=== PATIENT | female | born 1975 | race Caucasian/White ===

== ENCOUNTER 2016-09-06 18:09 | Emergency (ER) | payer SELFPAY ==
[2016-09-06 18:15] VITALS: BP 123/87; PULSE 133; RESP 20; TEMP 98.1; O2SAT 96
[2016-09-07] MEDS ORDERED: BACT800T5 PO (03:33)
[2016-09-07] MEDS ORDERED: ZOFR4TAB3 SL (03:33)
[2016-09-07] MEDS ORDERED: CHLO5CAP3 PO (03:38)
== END 2016-09-06 19:21 | disposition left against medical advice (07) ==
LOC: NED 19:15
DX: Z53.21 Procedure and treatment not carried out due to patient leaving prior to being seen by health care provider (principal)
CPT/HCPCS: 99281

== ENCOUNTER 2016-09-06 19:54 | Emergency (ER) | payer SELFPAY ==
[~2016-09-06] VITALS: Ht 175.3 cm; Wt 51.0 kg
[2016-09-06 20:38] VITALS: BP 121/89; PULSE 134; RESP 20; TEMP 98.8; O2SAT 97
[2016-09-06 21:07] VITALS: BP 135/90; PULSE 129; RESP 20; O2SAT 97
[2016-09-06] MEDS ORDERED: SODIUM CHLOR 0.9% 1000 ML INJ 1,000 ML IV ONE (21:16)
[2016-09-06] MEDS ORDERED: ONDANSETRON HCL 4 MG/2 ML VIAL IVP ONE (21:30)
[2016-09-06] MEDS ORDERED: SODIUM CHLORIDE 0.9% FLUSH 5 ML FLUSH IVF PRN (21:30)
[2016-09-06] MEDS ORDERED: LORazepam 2 MG/ML VIAL IV PUSH ONE (21:30)
--- NOTE | 2016-09-06 21:32 | PD ---
HPI Chief Complaint: Alcohol/Drug Intoxication Time Seen by Provider: 21:32 Travel History International Travel<30 days: No Contact w/Intl Traveler<30days: No Traveled to known affect area: No History of Present Illness HPI 41-year-old female presents to the emergency department by private transportation for complaint of alcohol withdrawal. Patient states she drinks a bottle to a bottle of half of whiskey every day. Patient last drank alcohol today at 2 PM. Patient states she also intermittently uses prescription medication that she gets from other people or substances. Patient states she took 50 mg of oxycodone yesterday. Patient also admits to smoking tobacco. Patient has history of hepatitis C. Patient has been seen numerous times in the emergency department for alcohol gastritis dehydration and alcohol withdrawal. Patient states that today she decided to attempt to pursue a detox program and went to [facility] and Tracey was told that the facility was fully could not take her as a patient. Patient states she subsequently went to a detox facility in [place] and the detox facility there said that she had to go the hospital so she went to Hospital reportedly in [place] and they reportedly told her that she could not be evaluated or treated there. Patient subsequently decided to come to the hospital here for evaluation. Patient complains of multiple episodes of vomiting and feeling dehydrated but denies hematemesis, coffee-ground emesis, or bilious emesis. Patient denies any abdominal pain. Patient's had numerous episodes of watery bloody stool reportedly. Patient denies any dietary indiscretion well water ingestion or foreign travel. Has not been on any antibiotics recently. Did not develop stool shortly after taking antibiotic for while on antibiotic. Does not had C. difficile diarrheal illness in the past. Has not been around or care for anyone with a C. difficile diarrheal illness. [facility] Past Medical History Narrative Medical Anxiety depression hepatitis C alcoholism polysubstance use and alcoholic gastritis pancreatitis; nursing notes reviewed Hx Anticoagulant Therapy: No Anxiety: Yes Depression: Yes Cancer: No Cardiovascular Problems: Yes (HEART MURMUR) Chemotherapy: No Cerebrovascular Accident: No Diabetes: No Diminished Hearing: No Endocrine: No Gastrointestinal Disorders: Yes ("my pancreas is fed up") GERD: Yes Genitourinary: No Headaches: Yes Hepatitis: Yes (HEP C) Immune Disorder: No Implanted Vascular Access Dvce: No Musculoskeletal: Yes Neurologic: Yes Psychiatric: Yes Reproductive: No Respiratory: No Immunizations Current: Yes Influenza Vaccination: No ?: Not LMP: 08/14/16 : 1 Miscarriage: 1 Dilation and Curettage (D&C): Yes Past Surgical History Hysterectomy: No Other Surgery: No Social History Alcohol Use: Yes (750ML OF WHISKEY DAILY) Tobacco Use: Yes (1/2 ) Substance Use: Yes (Marijuanna Daily; cocaine, oxycodone) Allergies-Medications (Allergen,Severity, Reaction): Coded Allergies: Aspirin (Verified Allergy, Severe, UNKNOWN, 09/06/16) Bees (Verified Allergy, Severe, 09/06/16) Poultry (Verified Allergy, Severe, SWELLING, 09/06/16) Penicillin (Verified Allergy, Intermediate, 09/06/16) Reported Meds & Prescriptions Reported Meds & Active Scripts Active Chlordiazepoxide (Chlordiazepoxide HCl) 5 Mg Cap 5 Mg PO TID PRN Zofran Odt (Ondansetron Odt) 4 Mg Tab 4 Mg SL Q6HR PRN Bactrim DS (Sulfamethoxazole-Trimethoprim) 800-160 Mg Tab 1 Tab PO BID Review of Systems Except as stated in HPI: all other systems reviewed are Neg General / Constitutional: Positive: Fever HENT: No: Congestion Cardiovascular: No: Chest Pain or Discomfort (subjective) Respiratory: Positive: Cough, No: Shortness of Breath Gastrointestinal: Positive: Nausea, Vomiting, Diarrhea, Hematochezia (times one ), No: Abdominal Pain, Hematemesis Genitourinary: Positive: Decreased Urinary Output, No: Urgency, Frequency, Dysuria Musculoskeletal: No: Myalgias, Arthralgias Neurologic: No: Weakness, Dizziness, Syncope Psychiatric: Positive: Anxiety, Substance Abuse, No: Suicidal Ideations Endocrine: No: Heat Intolerance Hematologic/Lymphatic: No: Easy Bruising Physical Exam Narrative GENERAL: Well-developed well-nourished thin female in no acute respiratory distress; GCS 15. BP: 121/89; HR: 134, O2sat RA: 97% RR:20 T:98.8F SKIN: Warm and dry. HEAD: Atraumatic. Normocephalic. EYES: Pupils equal and round. No scleral icterus. No injection or drainage. ENT: No nasal bleeding or discharge. Mucous membranes pink and moist. NECK: Trachea midline. No JVD. CARDIOVASCULAR: Regular rate and rhythm. RESPIRATORY: No accessory muscle use. Clear to auscultation. Breath sounds equal bilaterally. GASTROINTESTINAL: Abdomen soft, non-tender, nondistended. Hepatic and splenic margins not palpable. Rectal exam: Normal sphincter tone mucoid contents on exam glove MUSCULOSKELETAL: Extremities without clubbing, cyanosis, or edema. No obvious deformities. NEUROLOGICAL: Awake and alert. No obvious cranial nerve deficits. Motor grossly within normal limits. Five out of 5 muscle strength in the arms and legs. Normal speech. PSYCHIATRIC: Appropriate mood and affect; insight and judgment normal. Data Data Last Documented VS Vital Signs Date Time Temp Pulse Resp B/P Pulse Ox O2 Delivery O2 Flow Rate FiO2 09/07/16 04:09 123/91 99 09/07/16 02:21 95 16 Room Air 09/06/16 20:38 98.8 Orders Complete Blood Count With Diff (09/06/16 21:16) Comprehensive Metabolic Panel (09/06/16 21:16) Urinalysis - C+S If Indicated (09/06/16 21:16) Lipase (09/06/16 21:16) Iv Access Insert/Monitor (09/06/16 21:16) Ecg Monitoring (09/06/16 21:16) Oximetry (09/06/16 21:16) Ondansetron Inj (Zofran Inj) (09/06/16 21:30) Sodium Chlor 0.9% 1000 Ml Inj (Ns 1000 M (09/06/16 21:16) Sodium Chloride 0.9% Flush (Ns Flush) (09/06/16 21:30) Enteric Path (Stool) (09/06/16 21:16) Ed Urine Pregnancytest Poc (09/06/16 21:16) Magnesium (Mg) (09/06/16 21:16) Alcohol (Ethanol) (09/06/16 21:16) Drug Screen, Random Urine (09/06/16 21:16) Lorazepam Inj (Ativan Inj) (09/06/16 21:30) Urine Culture (09/06/16 21:28) Sulfamet-Trimeth Ds 800-160 Mg (Bactrim (09/07/16 00:00) Potassium Chloride (Kcl) (09/07/16 00:00) Thiamine Inj (Thiamine Inj) (09/07/16 00:00) Magnesium Oxide (Mag-Ox) (09/07/16 00:00) Potassium Chlor 10 Meq Premix (Kcl 10 Me (09/07/16 00:00) Calcium Gluconate (Calcium Gluconate) (09/07/16 03:45) Ondansetron Inj (Zofran Inj) (09/07/16 04:00) Labs Laboratory Tests Test 09/06/16 09/06/16 09/06/16 21:28 21:53 22:29 Urine Color YELLOW Urine Turbidity CLOUDY Urine pH 6.0 Urine Specific [place] 1.010 Urine Protein TRACE mg/dL Urine Glucose (UA) NEG mg/dL Urine Ketones NEG mg/dL Urine Occult Blood SMALL Urine Nitrite NEG Urine Bilirubin NEG Urine Leukocyte Esterase MOD Urine RBC 0-3 /hpf Urine WBC 9-14 /hpf Urine Squamous Epithelial 0-5 /hpf Cells Urine Bacteria MANY /hpf Microscopic Urinalysis Comment CULTURE INDICATED Urine Opiates Screen NEG Urine Barbiturates Screen NEG Urine Amphetamines Screen NEG Urine Benzodiazepines Screen NEG Urine Cocaine Screen POS Urine Cannabinoids Screen POS White Blood Count 8.4 TH/MM3 Red Blood Count 4.64 MIL/MM3 Hemoglobin 16.3 GM/DL Hematocrit 48.9 % Mean Corpuscular Volume 105.6 FL Mean Corpuscular Hemoglobin 35.1 PG Mean Corpuscular Hemoglobin 33.2 % Concent Red Cell Distribution Width 12.4 % Platelet Count 197 TH/MM3 Mean Platelet Volume 7.6 FL Neutrophils (%) (Auto) 55.6 % Lymphocytes (%) (Auto) 29.1 % Monocytes (%) (Auto) 14.9 % Eosinophils (%) (Auto) 0.2 % Basophils (%) (Auto) 0.2 % Neutrophils # (Auto) 4.8 TH/MM3 Lymphocytes # (Auto) 2.4 TH/MM3 Monocytes # (Auto) 1.2 TH/MM3 Eosinophils # (Auto) 0.0 TH/MM3 Basophils # (Auto) 0.0 TH/MM3 CBC Comment DIFF FINAL Differential Comment Sodium Level 142 MEQ/L Potassium Level 2.9 MEQ/L Chloride Level 102 MEQ/L Carbon Dioxide Level 31.3 MEQ/L Anion Gap 9 MEQ/L Blood Urea Nitrogen 6 MG/DL Creatinine 0.65 MG/DL Estimat Glomerular Filtration 101 ML/MIN Rate Random Glucose 109 MG/DL Calcium Level 7.9 MG/DL Magnesium Level 1.5 MG/DL Total Bilirubin 0.3 MG/DL Aspartate Amino Transf 81 U/L (AST/SGOT) Alanine Aminotransferase 44 U/L (ALT/SGPT) Alkaline Phosphatase 62 U/L Total Protein 7.3 GM/DL Albumin 3.2 GM/DL Lipase 170 U/L Ethyl Alcohol Level 328 MG/DL MDM Medical Decision Making Medical Screen Exam Complete: Yes Emergency Medical Condition: Yes Medical Record Reviewed: Yes Interpretation(s) CBC & BMP Diagram 09/06/16 21:53 09/06/16 22:29 Differential Diagnosis Gastroenteritis, dehydration, electrolyte disturbance, polysubstance ingestion, alcohol ingestion/intoxication, alcohol withdrawal, anemia Narrative Course IV access obtained specimens collected and sent for resulting patient administered Zofran 4 mg IV for complaint of nausea no vomiting noted in the emergency department and a liter of normal saline administered for dehydration patient does show evidence of tachycardia CBC is automated differential values grossly within normal limits except for probable hemoconcentration of hemoglobin and hematocrit Electrolytes resulted as hypokalemia potassium 2.9 after Zofran and IV fluids no nausea or vomiting witnessed in the emergency department able to tolerate oral potassium as well as IV potassium replacement also noted to have lower limit of normal magnesium given oral magnesium replacement. Patient identified to have serum alcohol 385 and positive toxicology screen for cocaine and cannabinoids most likely reflective of patient's tachycardia At 12 AM patient feels well is desirous of being discharged to home no sign of acute withdrawal at this time patient able to have electrolyte replacement and be discharged for outpatient follow up with [facility] to enter an outpatient or inpatient detox program. [facility]pt Point of Care Internal Pos. & Neg. Controls: Passed Fecal Specimen Occult Blood: Negative Diagnosis Primary Impression: Alcohol intoxication Qualified Code: F10.120 - Alcohol intoxication, uncomplicated Additional Impressions: Alcoholic gastritis Qualified Code: K29.20 - Alcoholic gastritis without bleeding, unspecified chronicity Electrolyte disturbance Hypokalemia Hypocalcemia UTI (urinary tract infection) Qualified Code: N30.00 - Acute cystitis without hematuria Referrals: Primary Care Physician call for appointment Tim Reeves 1 day Patient Instructions: General Instructions Additional Instructions: Add potassium calcium and magnesium containing foods and beverages to dietary intake Follow-up with [facility] for detox program Discontinue alcohol use Return to the emergency department for any concerns or change in condition Complete course of antibiotic as prescribed Take medication as prescribed as needed for nausea and/or vomiting Increase fluid hydration Med/Other Pt SpecificInfo: Prescription(s) given Scripts Chlordiazepoxide 5 Mg Cap5 Mg PO TID PRN (Anxiety) #4 CAP Ref 0 Prov:Madison Campbell MD 09/07/16 Ondansetron Odt (Zofran Odt)4 Mg Tab4 Mg SL Q6HR PRN (Nausea/Vomiting) #10 TAB Ref 0 Prov:Madison Campbell MD 09/07/16 Sulfamethoxazole-Trimethoprim (Bactrim DS)800-160 Mg Tab1 Tab PO BID #20 TAB Ref 0 Prov:Madison Campbell MD 09/07/16 Madison Campbell MD Sep 06, 2016 21:32
[2016-09-06 21:42] LABS: BLOOD, URINE SMALL (NEG); GLUCOSE,URINE NEG (NEG); KETONE, URINE NEG (NEG); NITRITE,URINE NEG (NEG)
[2016-09-06 21:49] LABS: AMPHETAMINE, URINE NEG (NEG); BARBITURATES, URINE NEG (NEG); RBC, URINE 0-3 /hpf (0-3); SQUAMOUS EPITHELIAL CELL URINE 0-5 /hpf (0-5); URINE COLOR YELLOW (YELLW/STRAW)
[2016-09-06 21:50] LABS: BACTERIA, URINE MANY /hpf; COCAINE, URINE POS (NEG); COMMENT (UR) CULTURE INDICATED; CULTURE IF INDICATED CULTURE INDICATED
[2016-09-06 22:01] LABS: AUTOMATED NEUTROPHIL # 4.8 TH/MM3 (1.8-7.7); BASOPHIL % 0.2 % (0.0-2.0); EOSINOPHIL % 0.2 % (0.0-4.0); HEMATOCRIT 48.9 % (35.0-46.0); HEMO FLAGS DIFF FINAL; LYMPH % 29.1 % (9.0-44.0); LYMPHOCYTE # 2.4 TH/MM3 (1.0-4.8); MEAN CELL VOLUME 105.6 FL (80.0-100.0); MEAN CORPUSCULAR HEMOGLOBIN 35.1 PG (27.0-34.0); MEAN CORPUSCULAR HGB CONC 33.2 % (32.0-36.0); MONO % 14.9 % (0.0-8.0); NEUT % 55.6 % (16.0-70.0); PLATELET COUNT 197 TH/MM3 (150-450); RED BLOOD COUNT 4.64 MIL/MM3 (4.00-5.30); RED CELL DISTRIBUTION WIDTH 12.4 % (11.6-17.2); WHITE BLOOD COUNT 8.4 TH/MM3 (4.0-11.0)
[2016-09-06 22:26] VITALS: BP 195/90; PULSE 101; RESP 18; O2SAT 96
[2016-09-06 23:09] LABS: ALKALINE PHOSPHATASE 62 U/L (45-117); ALT (GPT) 44 U/L (10-53); ANION GAP 9 MEQ/L (5-15); AST (GOT) 81 U/L (15-37); BICARBONATE 31.3 MEQ/L (21.0-32.0); BLOOD UREA NITROGEN 6 MG/DL (7-18); CHLORIDE 102 MEQ/L (98-107); GLOMERULAR FILTRATION RATE 101 ML/MIN (>89); MAGNESIUM 1.5 MG/DL (1.5-2.5); SODIUM (NA) 142 MEQ/L (136-145); TOTAL BILIRUBIN ADULT 0.3 MG/DL (0.2-1.0)
[2016-09-06 23:21] LABS: POTASSIUM 2.9 MEQ/L (3.5-5.1)
[2016-09-07] MEDS ORDERED: POTASSIUM CHLOR 10 MEQ PREMIX 100 ML IV ONE
[2016-09-07] MEDS ORDERED: MAGNESIUM OXIDE 400 MG TAB PO ONE
[2016-09-07] MEDS ORDERED: POTASSIUM CHLORIDE 20 MEQ CONTROLLED RELEASE TAB PO ONE
[2016-09-07] MEDS ORDERED: THIAMINE INJ 100 MG in SODIUM CHLORIDE 0.9% INJ 100 ML IV ONE ×2
[2016-09-07] MEDS ORDERED: SULFAMETHOXAZOLE-TRIMETHOPRIM DS 800-160 MG TAB PO ONE
[2016-09-07 02:21] VITALS: BP 117/89; PULSE 95; RESP 16; O2SAT 97
[2016-09-07] MEDS ORDERED: BACT800T5 PO (03:33)
[2016-09-07] MEDS ORDERED: ZOFR4TAB3 SL (03:33)
[2016-09-07] MEDS ORDERED: CHLO5CAP3 PO (03:38)
[2016-09-07] MEDS ORDERED: CALCIUM GLUCONATE 500 MG TAB PO ONE (03:45)
[2016-09-07] MEDS ORDERED: ONDANSETRON HCL 4 MG/2 ML VIAL IV PUSH ONE (04:00)
[2016-09-07 04:09] VITALS: BP 123/91
== END 2016-09-07 04:24 | disposition home or self-care (01) ==
LOC: PHED 19:54
DX: F10.120 Alcohol abuse with intoxication, uncomplicated (principal); E87.6 Hypokalemia; K29.20 Alcoholic gastritis without bleeding; E83.51 Hypocalcemia; N39.0 Urinary tract infection, site not specified; B96.29 Other Escherichia coli [E. coli] as the cause of diseases classified elsewhere; F41.8 Other specified anxiety disorders; R00.0 Tachycardia, unspecified; F17.210 Nicotine dependence, cigarettes, uncomplicated; F14.20 Cocaine dependence, uncomplicated; B19.20 Unspecified viral hepatitis C without hepatic coma; Y90.8 Blood alcohol level of 240 mg/100 ml or more
CPT/HCPCS: 80053; 80307; 81001; 83690; 83735; 84703; 85025; 87077; 87086; 87186; 96361; 96365; 96366; 96368; 96375; 96376; 99284; J2060; J2405; J3411; J3480; J7030

== ENCOUNTER 2016-12-22 14:45 | Emergency (ER) | payer SELFPAY ==
[~2016-12-22] VITALS: Ht 175.3 cm; Wt 54.5 kg
[~2016-12-22 14:45] MED LIST: BACT800T5 PO; CHLO5CAP3 PO; ZOFR4TAB3 SL
[2016-12-22 14:51] VITALS: BP 126/89; PULSE 99; RESP 16; TEMP 98.9; O2SAT 98
--- NOTE | 2016-12-22 16:23 | PD ---
HPI Chief Complaint: Alcohol/Drug Intoxication Time Seen by Provider: 16:20 Travel History International Travel<30 days: No Contact w/Intl Traveler<30days: No Traveled to known affect area: No History of Present Illness HPI 41-year-old female presents to the emergency department stating that she feels like she is dehydrated. The patient reports wanting detox from alcohol. She states she drinks 2 bottles of whiskey daily. She states that she has already had 2 bottles of whiskey today. The patient denies any chest pain. No abdominal pain. No nausea, vomiting. Patient does report diarrhea for 2 days. She reports 2 episodes today. No blood in her stool. Patient denies any recent antibiotic use. No history of C. difficile. Patient denies any headache. No fevers or chills. Patient points history hepatitis C. She is not currently any prescribed medications. She denies stating she is not sexually active. She has no other complaints. PFSH Past Medical History Hx Anticoagulant Therapy: No Anxiety: Yes Depression: Yes Cancer: No Cardiovascular Problems: Yes (MURMUR) Chemotherapy: No Cerebrovascular Accident: No Diabetes: No Diminished Hearing: No Endocrine: No Gastrointestinal Disorders: Yes ("my pancreas is fed up") GERD: Yes Genitourinary: No Headaches: Yes Hepatitis: Yes (HEP C) Immune Disorder: No Implanted Vascular Access Dvce: No Musculoskeletal: Yes Neurologic: Yes Psychiatric: Yes Reproductive: No Respiratory: Yes (ASTHMA) Immunizations Current: Yes ?: Not : 1 Miscarriage: 1 Dilation and Curettage (D&C): Yes Past Surgical History Hysterectomy: No Other Surgery: No Social History Alcohol Use: Yes (750ML OF WHISKEY DAILY) Tobacco Use: Yes (1/2 ) Substance Use: Yes (Marijuanna Daily; cocaine, oxycodone) Allergies-Medications (Allergen,Severity, Reaction): Coded Allergies: Aspirin (Verified Allergy, Severe, UNKNOWN, 09/06/16) Bees (Verified Allergy, Severe, 09/06/16) Poultry (Verified Allergy, Severe, SWELLING, 09/06/16) Penicillin (Verified Allergy, Intermediate, 09/06/16) Reported Meds & Prescriptions Reported Meds & Active Scripts Active Chlordiazepoxide HCl 10 Mg Capsule 1 Cap PO TID PRN Chlordiazepoxide (Chlordiazepoxide HCl) 5 Mg Cap 5 Mg PO TID PRN Zofran Odt (Ondansetron Odt) 4 Mg Tab 4 Mg SL Q6HR PRN Bactrim DS (Sulfamethoxazole-Trimethoprim) 800-160 Mg Tab 1 Tab PO BID Review of Systems Except as stated in HPI: all other systems reviewed are Neg Physical Exam Narrative GENERAL: Well-nourished, well-developed female patient, afebrile. SKIN: Focused skin assessment warm/dry. HEAD: Normocephalic. Atraumatic. EYES: No scleral icterus. No injection or drainage. NECK: Supple, trachea midline. No JVD or lymphadenopathy. CARDIOVASCULAR: Regular rate and rhythm without murmurs, gallops, or rubs. RESPIRATORY: Breath sounds equal bilaterally. No accessory muscle use. Lungs sounds are clear to auscultation. GASTROINTESTINAL: Abdomen soft, non-tender, nondistended. MUSCULOSKELETAL: No cyanosis, or edema. PSYCHIATRIC: No delusional thought processes. No hallucinations. Data Data Last Documented VS Vital Signs Date Time Temp Pulse Resp B/P Pulse Ox O2 Delivery O2 Flow Rate FiO2 12/22/16 16:16 18 12/22/16 14:51 98.9 99 126/89 98 Orders Iv Access Insert/Monitor (12/22/16 16:16) Complete Blood Count With Diff (12/22/16 16:16) Comprehensive Metabolic Panel (12/22/16 16:16) Alcohol (Ethanol) (12/22/16 16:16) Sodium Chlor 0.9% 1000 Ml Inj (Ns 1000 M (12/22/16 16:30) Urinalysis - C+S If Indicated (12/22/16 16:23) Drug Screen, Random Urine (12/22/16 16:23) Ed Urine Pregnancytest Poc (12/22/16 16:23) Potassium Chloride (Kcl) (12/22/16 17:45) Labs Laboratory Tests Test 12/22/16 16:20 White Blood Count 5.6 TH/MM3 Red Blood Count 4.13 MIL/MM3 Hemoglobin 14.6 GM/DL Hematocrit 41.8 % Mean Corpuscular Volume 101.2 FL Mean Corpuscular Hemoglobin 35.2 PG Mean Corpuscular Hemoglobin 34.8 % Concent Red Cell Distribution Width 13.3 % Platelet Count 283 TH/MM3 Mean Platelet Volume 8.1 FL Neutrophils (%) (Auto) 40.2 % Lymphocytes (%) (Auto) 43.6 % Monocytes (%) (Auto) 14.2 % Eosinophils (%) (Auto) 0.8 % Basophils (%) (Auto) 1.2 % Neutrophils # (Auto) 2.2 TH/MM3 Lymphocytes # (Auto) 2.4 TH/MM3 Monocytes # (Auto) 0.8 TH/MM3 Eosinophils # (Auto) 0.0 TH/MM3 Basophils # (Auto) 0.1 TH/MM3 CBC Comment DIFF FINAL Differential Comment Urine Color YELLOW Urine Turbidity HAZY Urine pH 7.5 Urine Specific [place] 1.009 Urine Protein NEG mg/dL Urine Glucose (UA) NEG mg/dL Urine Ketones NEG mg/dL Urine Occult Blood NEG Urine Nitrite NEG Urine Bilirubin NEG Urine Urobilinogen LESS THAN 2.0 MG/DL Urine Leukocyte Esterase NEG Urine RBC LESS THAN 1 /hpf Urine WBC 2 /hpf Urine Squamous Epithelial 13 /hpf Cells Urine Amorphous Sediment RARE Urine Bacteria RARE /hpf Microscopic Urinalysis Comment CULT NOT INDICATED Sodium Level 147 MEQ/L Potassium Level 3.2 MEQ/L Chloride Level 110 MEQ/L Carbon Dioxide Level 30.9 MEQ/L Anion Gap 6 MEQ/L Blood Urea Nitrogen 6 MG/DL Creatinine 0.53 MG/DL Estimat Glomerular Filtration 128 ML/MIN Rate Random Glucose 99 MG/DL Calcium Level 8.1 MG/DL Total Bilirubin 0.3 MG/DL Aspartate Amino Transf 117 U/L (AST/SGOT) Alanine Aminotransferase 69 U/L (ALT/SGPT) Alkaline Phosphatase 67 U/L Total Protein 7.5 GM/DL Albumin 3.5 GM/DL Urine Opiates Screen NEG Urine Barbiturates Screen NEG Urine Amphetamines Screen NEG Urine Benzodiazepines Screen NEG Urine Cocaine Screen NEG Urine Cannabinoids Screen POS Ethyl Alcohol Level 368 MG/DL [facility] Medical Decision Making Medical Screen Exam Complete: Yes Emergency Medical Condition: Yes Medical Record Reviewed: Yes Differential Diagnosis Alcohol intoxication versus electrolyte abnormality versus dehydration Narrative Course 41-year-old female presents to the emergency department requesting detox and states she feels dehydrated. Patient reports drinking 2 bottles of whiskey today. She appears well on exam. CBC, CMP, alcohol level , UA, urine test, urine drug screen are ordered and pending. Patient is given normal saline 1 L IV bolus. CBC shows no acute abnormality. CMP shows hypokalemia at 3.2, AST 117, ALT 69. Alcohol level is 368. UA is negative for acute infection. UPT is negative. UDS is positive for cannabinoids. Patient's [id number] at bedside. Patient requests prescription for Librium. My attending physician, Dr. Valadez, agrees to this. Patient is stable for discharge. She is instructed to follow up at [facility] for detox. She verbalizes agreement. The patient was discharged in stable condition with instructions, including return instructions and follow up instructions. Diagnosis Primary Impression: Alcohol intoxication Qualified Code: F10.920 - Alcohol intoxication, uncomplicated Referrals: [facility] call for appointment Patient Instructions: Alcohol Intoxication (ED), General Instructions Additional Instructions: Take Librium as directed as needed. Follow-up at [facility] for detox. Return to the emergency department for any acute worsening of symptoms. Med/Other Pt SpecificInfo: Prescription(s) given Scripts Chlordiazepoxide HCl 10 Mg Capsule1 Cap PO TID PRN (WITHDRAWAL) #10 Prov:Manjinder Valadez MD 12/22/16 Disposition: 01 DISCHARGE HOME Condition: Stable Kristin Holley Dec 22, 2016 16:23
[2016-12-22] MEDS ORDERED: SODIUM CHLOR 0.9% 1000 ML INJ 1,000 ML IV ONE (16:30)
[2016-12-22 17:03] LABS: BACTERIA, URINE RARE /hpf; BLOOD, URINE NEG (NEG); COMMENT (UR) CULT NOT INDICATED; CULTURE IF INDICATED CULT NOT INDICATED; GLUCOSE,URINE NEG (NEG); KETONE, URINE NEG (NEG); NITRITE,URINE NEG (NEG); PH, URINE 7.5 (5.0-8.5); SQUAMOUS EPITHELIAL CELL URINE 13 /hpf (0-5); URINE COLOR YELLOW (YELLW/STRAW)
[2016-12-22 17:04] LABS: AUTOMATED NEUTROPHIL # 2.2 TH/MM3 (1.8-7.7); BASOPHIL # 0.1 TH/MM3 (0-0.2); BASOPHIL % 1.2 % (0.0-2.0); EOSINOPHIL % 0.8 % (0.0-4.0); HEMATOCRIT 41.8 % (35.0-46.0); HEMO FLAGS DIFF FINAL; LYMPH % 43.6 % (9.0-44.0); LYMPHOCYTE # 2.4 TH/MM3 (1.0-4.8); MEAN CELL VOLUME 101.2 FL (80.0-100.0); MEAN CORPUSCULAR HEMOGLOBIN 35.2 PG (27.0-34.0); MEAN CORPUSCULAR HGB CONC 34.8 % (32.0-36.0); MONO % 14.2 % (0.0-8.0); NEUT % 40.2 % (16.0-70.0); PLATELET COUNT 283 TH/MM3 (150-450); RED BLOOD COUNT 4.13 MIL/MM3 (4.00-5.30); RED CELL DISTRIBUTION WIDTH 13.3 % (11.6-17.2); WHITE BLOOD COUNT 5.6 TH/MM3 (4.0-11.0)
[2016-12-22 17:06] LABS: AMPHETAMINE, URINE NEG (NEG); BARBITURATES, URINE NEG (NEG); COCAINE, URINE NEG (NEG)
[2016-12-22 17:20] LABS: ANION GAP 6 MEQ/L (5-15); AST (GOT) 117 U/L (15-37); BICARBONATE 30.9 MEQ/L (21.0-32.0); BLOOD UREA NITROGEN 6 MG/DL (7-18); CHLORIDE 110 MEQ/L (98-107); GLOMERULAR FILTRATION RATE 128 ML/MIN (>89); POTASSIUM 3.2 MEQ/L (3.5-5.1); SODIUM (NA) 147 MEQ/L (136-145)
[2016-12-22 17:24] LABS: ALKALINE PHOSPHATASE 67 U/L (45-117); ALT (GPT) 69 U/L (10-53); TOTAL BILIRUBIN ADULT 0.3 MG/DL (0.2-1.0)
[2016-12-22] MEDS ORDERED: CHLO10CA5 PO ×2 (17:38→17:39)
[2016-12-22] MEDS ORDERED: POTASSIUM CHLORIDE 20 MEQ CONTROLLED RELEASE TAB PO ONE (17:45)
== END 2016-12-22 17:52 | disposition home or self-care (01) ==
LOC: NEPD 14:45
DX: F10.920 Alcohol use, unspecified with intoxication, uncomplicated (principal); R01.1 Cardiac murmur, unspecified; J45.909 Unspecified asthma, uncomplicated; F17.210 Nicotine dependence, cigarettes, uncomplicated; B19.20 Unspecified viral hepatitis C without hepatic coma
CPT/HCPCS: 80053; 80307; 81001; 84703; 85025; 96360; 99284; J7030

== ENCOUNTER 2017-01-09 14:14 | Emergency (ER) | payer SELFPAY ==
[~2017-01-09 14:14] MED LIST changes: +CHLO10CA5 PO
--- NOTE | 2017-01-09 14:27 | PD ---
HPI Chief Complaint: Injury Time Seen by Provider: 14:15 Travel History International Travel<30 days: No Contact w/Intl Traveler<30days: No Traveled to known affect area: No History of Present Illness HPI 41-year-old female presents to the emergency room for evaluation of right fifth toe pain, swelling, and redness after stubbing it 10 hours prior to arrival. Patient was walking through her house when she caught her toe on the dresser. 4 of her toes went to the left and the pinky toe went to the right. She looked down and saw that her pinky toe was bleeding. She had immediate pain but states it has been getting worse and worse throughout the day. Pain is radiating down into her foot. She took ibuprofen and applied ice without any relief in symptoms. Denies paresthesias. Denies chronic medical conditions or daily medications. PFSH Past Medical History Hx Anticoagulant Therapy: No Asthma: Yes Anxiety: Yes Depression: Yes Cancer: No Cardiovascular Problems: Yes (MURMUR) Chemotherapy: No Cerebrovascular Accident: No Diabetes: No Diminished Hearing: No Endocrine: No Gastrointestinal Disorders: Yes ("my pancreas is fed up") GERD: Yes Genitourinary: No Headaches: Yes Hepatitis: Yes (hep C) Immune Disorder: No Implanted Vascular Access Dvce: No Musculoskeletal: Yes Neurologic: Yes Psychiatric: Yes Reproductive: No Respiratory: Yes (ASTHMA) Immunizations Current: Yes : 1 Miscarriage: 1 Dilation and Curettage (D&C): Yes Past Surgical History Hysterectomy: No Other Surgery: No Social History Alcohol Use: Yes Tobacco Use: Yes Substance Use: No Allergies-Medications (Allergen,Severity, Reaction): Coded Allergies: Aspirin (Verified Allergy, Severe, UNKNOWN, 09/06/16) Bees (Verified Allergy, Severe, 09/06/16) Poultry (Verified Allergy, Severe, SWELLING, 09/06/16) Penicillin (Verified Allergy, Intermediate, 09/06/16) Reported Meds & Prescriptions Reported Meds & Active Scripts Active Review of Systems Except as stated in HPI: all other systems reviewed are Neg Physical Exam Narrative GENERAL: Well-nourished, well-developed female in no acute distress. Afebrile. Ambulatory. SKIN: Focused skin assessment warm/dry. Small, 3 mm superficial abrasion on the right fifth toe. Nonbleeding. HEAD: Normocephalic. EYES: No scleral icterus. No injection or drainage. NECK: Supple, trachea midline. No JVD or lymphadenopathy. CARDIOVASCULAR: Regular rate and rhythm without murmurs, gallops, or rubs. RESPIRATORY: Breath sounds equal bilaterally. No accessory muscle use. MUSCULOSKELETAL: No cyanosis. Very mild/trace edema of the right fifth toe. DALE-2 second capillary refill distally. Full range of motion. No bony tenderness to palpation of the foot. There is tenderness to palpation of the distal phalanx. No obvious deformity. Data Data Last Documented VS Vital Signs Date Time Temp Pulse Resp B/P Pulse Ox O2 Delivery O2 Flow Rate FiO2 01/09/17 14:20 20 Orders Splint Or Brace Apply/Monitor (01/09/17 14:27) Lidocaine Pf 1% Inj (Xylocaine-Mpf 1% In (01/09/17 15:00) MDM Medical Decision Making Medical Screen Exam Complete: Yes Emergency Medical Condition: Yes Medical Record Reviewed: Yes Differential Diagnosis Fracture, laceration, contusion, abrasion, strain, sprain Narrative Course 41-year-old female presents to the emergency room for evaluation of right fifth toe pain, swelling, and redness after hitting it on a dresser 10 hours prior to arrival. Patient is ambulatory. Physical exam reveals trace edema and mild erythema of the right fifth toe. It is extremely tender to palpation over the distal portion. No obvious deformity. Anatomical alignment. No foot tenderness to palpation. It is neurovascularly intact with less than 2 second capillary refill distally. Patient was informed that her toe is likely fractured but getting an x-ray will not change the treatment The toe was aida taped and the wound was dressed with triple antibiotic ointment. Upon discharge , patient states she cannot take ibuprofen because she is allergic to it despite telling me that that what she was taking earlier. She is requesting something stronger, stating Tylenol is not helping her pain. Patient was informed it is not typical to prescribe narcotic pain medication for a fractured toe and that she will need to follow up with her primary care physician. She was given a digital block in the emergency room. She is cantankerous and crying upon discharge. Will return for worsening symptoms. She understands and agrees to plan. Diagnosis Primary Impression: Toe fracture, right Qualified Code: S92.534A - Closed nondisplaced fracture of distal phalanx of lesser toe of right foot, initial encounter Referrals: Primary Care Physician Patient Instructions: General Instructions, Toe Fracture (ED) Additional Instructions: Rest and drink plenty of fluids. Keep splint on for 3-6 weeks. Take ibuprofen with food as directed, as needed for pain. Apply ice to the affected area for 20 minutes at a time, as needed for pain and swelling. Follow-up with a primary care physician. Return to the emergency room for worsening symptoms. Disposition: 01 DISCHARGE HOME Condition: Stable Gwen Amaya Jan 09, 2017 14:27
[2017-01-09] MEDS ORDERED: LIDOCAINE HCL 1% PF 30 ML VIAL INFIL ONE (15:00)
== END 2017-01-09 15:07 | disposition home or self-care (01) ==
LOC: PHEFT 14:14
DX: S92.534A Nondisplaced fracture of distal phalanx of right lesser toe(s), initial encounter for closed fracture (principal); Z72.0 Tobacco use; Z87.09 Personal history of other diseases of the respiratory system; Z86.59 Personal history of other mental and behavioral disorders; Z86.79 Personal history of other diseases of the circulatory system; Z87.19 Personal history of other diseases of the digestive system; Z87.39 Personal history of other diseases of the musculoskeletal system and connective tissue; Z86.69 Personal history of other diseases of the nervous system and sense organs; W22.03XA Walked into furniture, initial encounter; Y92.009 Unspecified place in unspecified non-institutional (private) residence as the place of occurrence of the external cause
CPT/HCPCS: 64450; 99283; L3260

== ENCOUNTER 2017-02-10 09:03 | Emergency (ER) | payer SELFPAY ==
[~2017-02-10] VITALS: Ht 175.3 cm; Wt 60.0 kg
[2017-02-10 09:07] VITALS: BP 131/95; PULSE 110; RESP 18; TEMP 98; O2SAT 97
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
== END 2017-02-10 10:05 | disposition home or self-care (01) ==
LOC: NEPK 09:03
DX: S89.92XA Unspecified injury of left lower leg, initial encounter (principal); S80.812A Abrasion, left lower leg, initial encounter; J45.909 Unspecified asthma, uncomplicated; K21.9 Gastro-esophageal reflux disease without esophagitis; F41.9 Anxiety disorder, unspecified; B19.20 Unspecified viral hepatitis C without hepatic coma; F17.200 Nicotine dependence, unspecified, uncomplicated; V18.4XXA Pedal cycle driver injured in noncollision transport accident in traffic accident, initial encounter; Z88.0 Allergy status to penicillin
CPT/HCPCS: 73590; 99283

== ENCOUNTER 2017-02-26 14:57 | Emergency (ER) | payer SELFPAY ==
[~2017-02-26] VITALS: Ht 170.2 cm; Wt 50.0 kg
[2017-02-26 15:04] VITALS: BP 129/78; PULSE 106; RESP 17; TEMP 98.2; O2SAT 99
[2017-02-26] MEDS ORDERED: SODIUM CHLOR 0.9% 1000 ML INJ 1,000 ML IV ONE (15:15)
[2017-02-26] MEDS ORDERED: RESP: ALBUTEROL 2.5 MG/IPRATROPIUM 0.5 MG NEB (SCH) NEB ONE (15:15)
[2017-02-26] MEDS ORDERED: LORazepam 1 MG TAB PO ONE (15:15)
[2017-02-26 15:24] LABS: HEMATOCRIT 39.8 % (35.0-46.0); RED BLOOD COUNT 3.69 MIL/MM3 (4.00-5.30); WHITE BLOOD COUNT 3.9 TH/MM3 (4.0-11.0)
[2017-02-26 15:25] LABS: AUTOMATED NEUTROPHIL # 1.6 TH/MM3 (1.8-7.7); BASOPHIL % 0.5 % (0.0-2.0); EOSINOPHIL % 1.1 % (0.0-4.0); HEMO FLAGS DIFF FINAL; LYMPH % 48.2 % (9.0-44.0); LYMPHOCYTE # 1.9 TH/MM3 (1.0-4.8); MEAN CELL VOLUME 107.6 FL (80.0-100.0); MEAN CORPUSCULAR HEMOGLOBIN 36.8 PG (27.0-34.0); MEAN CORPUSCULAR HGB CONC 34.2 % (32.0-36.0); MONO % 10.5 % (0.0-8.0); NEUT % 39.7 % (16.0-70.0); PLATELET COUNT 109 TH/MM3 (150-450); RED CELL DISTRIBUTION WIDTH 13.7 % (11.6-17.2)
--- NOTE | 2017-02-26 15:33 | PD ---
HPI Chief Complaint: Alcohol/Drug Intoxication Time Seen by Provider: 15:02 Travel History International Travel<30 days: No Contact w/Intl Traveler<30days: No Traveled to known affect area: No History of Present Illness HPI The patient is a 41-year-old female who presents to the emergency department for complaints at shortness of breath and alcohol withdrawal. The patient states she developed shortness of breath approximately one hour prior to arrival. The patient then called EMS and subsequently had a cigarette. The patient does have a history of similar symptoms in the past that she attributes to alcohol withdrawal and bronchitis. She denies any history of pulmonary embolism or DVT. The patient denies any acute chest pain, does note a constant dry nonproductive cough. She also complains of alcohol withdrawal, states she felt "shaky "earlier, however, a drink of alcohol after calling EMS for her alcohol withdrawal. Symptoms are mild to moderate, possibly exacerbated by history of alcohol use and cigarette use. PFSH Past Medical History Hx Anticoagulant Therapy: No Asthma: Yes Anxiety: Yes Depression: Yes Chemotherapy: No Cerebrovascular Accident: No Diabetes: No Diminished Hearing: No Endocrine: No Gastrointestinal Disorders: Yes ("my pancreas is fed up") GERD: Yes Genitourinary: No Headaches: Yes Hepatitis: Yes (hep C) Hypertension: Yes Immune Disorder: No Implanted Vascular Access Dvce: No Musculoskeletal: Yes Neurologic: Yes Psychiatric: Yes Reproductive: No Immunizations Current: Yes Tetanus Vaccination: < 5 Years Influenza Vaccination: No ?: Not LMP: 12/2016 : 1 Miscarriage: 1 Dilation and Curettage (D&C): Yes Past Surgical History Other Surgery: No Social History Alcohol Use: Yes (1 BOTTLE OF WHISKEY DAILY) Tobacco Use: Yes (/4 ppd) Substance Use: Yes (LORTAB, MORPHINE, AND COCAINE) Allergies-Medications (Allergen,Severity, Reaction): Coded Allergies: Poultry (Unverified Allergy, Severe, SWELLING, 02/26/17) aspirin (Unverified Allergy, Severe, UNKNOWN, 02/26/17) bee venom protein (honey bee) (Unverified Allergy, Severe, 02/26/17) penicillin G (Unverified Allergy, Intermediate, 02/26/17) Reported Meds & Prescriptions Reported Meds & Active Scripts Active No Active Prescriptions or Reported Medications Review of Systems Except as stated in HPI: all other systems reviewed are Neg Cardiovascular: No: Chest Pain or Discomfort Respiratory: Positive: Cough, Shortness of Breath Gastrointestinal: No: Nausea, Vomiting, Abdominal Pain Psychiatric: Positive: Substance Abuse (alcohol abuse) Physical Exam Narrative GENERAL: Awake, alert, nontoxic-appearing 41-year-old female who appears older than her stated age. SKIN: Focused skin assessment warm/dry. HEAD: Atraumatic. Normocephalic. EYES: Pupils equal and round. No scleral icterus. No injection or drainage. ENT: No nasal bleeding or discharge. Mucous membranes pink and moist. NECK: Trachea midline. No JVD. CARDIOVASCULAR: Regular, tachycardic with a heart rate of 105. RESPIRATORY: No accessory muscle use. Prolonged expiratory phase. GASTROINTESTINAL: Abdomen soft, non-tender, nondistended. MUSCULOSKELETAL: No obvious deformities. No clubbing. No cyanosis. No edema. No tremors noted. NEUROLOGICAL: Awake and alert. No obvious cranial nerve deficits. Motor grossly within normal limits. Normal speech. Nonfocal. PSYCHIATRIC: Appropriate mood and affect; insight and judgment normal. Data Data Last Documented VS Vital Signs Date Time Temp Pulse Resp B/P (MAP) Pulse Ox O2 Delivery O2 Flow Rate FiO2 02/26/17 15:06 Room Air 02/26/17 15:04 98.2 106 17 129/78 (95) 99 Orders Orders Complete Blood Count With Diff (02/26/17 15:08) Comprehensive Metabolic Panel (02/26/17 15:08) Alcohol (Ethanol) (02/26/17 15:08) Chest, Single Ap (02/26/17 ) Magnesium (Mg) (02/26/17 15:08) B-Type Natriuretic Peptide (02/26/17 15:08) Sodium Chlor 0.9% 1000 Ml Inj (Ns 1000 M (02/26/17 15:15) Lorazepam (Ativan) (02/26/17 15:15) Albuterol-Ipratropium Neb (Duoneb Neb) (02/26/17 15:15) Labs Laboratory Tests Test 02/26/17 15:10 White Blood Count 3.9 TH/MM3 Red Blood Count 3.69 MIL/MM3 Hemoglobin 13.6 GM/DL Hematocrit 39.8 % Mean Corpuscular Volume 107.6 FL Mean Corpuscular Hemoglobin 36.8 PG Mean Corpuscular Hemoglobin Concent 34.2 % Red Cell Distribution Width 13.7 % Platelet Count 109 TH/MM3 Mean Platelet Volume 8.4 FL Neutrophils (%) (Auto) 39.7 % Lymphocytes (%) (Auto) 48.2 % Monocytes (%) (Auto) 10.5 % Eosinophils (%) (Auto) 1.1 % Basophils (%) (Auto) 0.5 % Neutrophils # (Auto) 1.6 TH/MM3 Lymphocytes # (Auto) 1.9 TH/MM3 Monocytes # (Auto) 0.4 TH/MM3 Eosinophils # (Auto) 0.0 TH/MM3 Basophils # (Auto) 0.0 TH/MM3 CBC Comment DIFF FINAL Differential Comment Blood Urea Nitrogen 4 MG/DL Creatinine 0.57 MG/DL Random Glucose 116 MG/DL Total Protein 8.0 GM/DL Albumin 3.7 GM/DL Calcium Level 8.6 MG/DL Magnesium Level 2.0 MG/DL Alkaline Phosphatase 89 U/L Aspartate Amino Transf (AST/SGOT) 138 U/L Alanine Aminotransferase (ALT/SGPT) 50 U/L Total Bilirubin 0.5 MG/DL Sodium Level 145 MEQ/L Potassium Level 3.3 MEQ/L Chloride Level 105 MEQ/L Carbon Dioxide Level 29.0 MEQ/L Anion Gap 11 MEQ/L Estimat Glomerular Filtration Rate 117 ML/MIN Ethyl Alcohol Level 414 MG/DL MDM Medical Decision Making Medical Screen Exam Complete: Yes Emergency Medical Condition: Yes Medical Record Reviewed: Yes Interpretation(s) Last Impressions Chest X-Ray 02/26/17 0000 Signed Impressions: Service Date/Time: Sunday, February 26, 2017 15:36 - CONCLUSION: No evidence of acute cardiopulmonary disease. Kloe Modi MD Laboratory Tests Test 02/26/17 15:10 White Blood Count 3.9 TH/MM3 Red Blood Count 3.69 MIL/MM3 Hemoglobin 13.6 GM/DL Hematocrit 39.8 % Mean Corpuscular Volume 107.6 FL Mean Corpuscular Hemoglobin 36.8 PG Mean Corpuscular Hemoglobin Concent 34.2 % Red Cell Distribution Width 13.7 % Platelet Count 109 TH/MM3 Mean Platelet Volume 8.4 FL Neutrophils (%) (Auto) 39.7 % Lymphocytes (%) (Auto) 48.2 % Monocytes (%) (Auto) 10.5 % Eosinophils (%) (Auto) 1.1 % Basophils (%) (Auto) 0.5 % Neutrophils # (Auto) 1.6 TH/MM3 Lymphocytes # (Auto) 1.9 TH/MM3 Monocytes # (Auto) 0.4 TH/MM3 Eosinophils # (Auto) 0.0 TH/MM3 Basophils # (Auto) 0.0 TH/MM3 CBC Comment DIFF FINAL Differential Comment Blood Urea Nitrogen 4 MG/DL Creatinine 0.57 MG/DL Random Glucose 116 MG/DL Total Protein 8.0 GM/DL Albumin 3.7 GM/DL Calcium Level 8.6 MG/DL Magnesium Level 2.0 MG/DL Alkaline Phosphatase 89 U/L Aspartate Amino Transf (AST/SGOT) 138 U/L Alanine Aminotransferase (ALT/SGPT) 50 U/L Total Bilirubin 0.5 MG/DL Sodium Level 145 MEQ/L Potassium Level 3.3 MEQ/L Chloride Level 105 MEQ/L Carbon Dioxide Level 29.0 MEQ/L Anion Gap 11 MEQ/L Estimat Glomerular Filtration Rate 117 ML/MIN Ethyl Alcohol Level 414 MG/DL Differential Diagnosis Differential diagnosis includes COPD exacerbation, bronchitis, pulmonary embolism, pleural effusion, pneumonia, alcohol withdrawal, alcohol dependence, alcohol abuse. Narrative Course IV was established, labs are drawn and sent, and the patient was placed on cardiac telemetry monitoring and continuous pulse oximetry monitoring. Chest x- ray was obtained. The patient was administered DuoNeb 1 and Ativan 1 mg orally. Potassium is mildly low at 3.3. Alcohol level is elevated at 414. Chest x-rays unremarkable. Patient will be allowed to sleep it off and will be discharged home when she is able to ambulate and has a safe disposition home. Diagnosis Primary Impression: Alcohol intoxication Qualified Codes: F10.920 - Alcohol use, unspecified with intoxication, uncomplicated Additional Impression: Alcohol abuse Patient Instructions: General Instructions Additional Instructions: Decrease alcohol intake. Follow-up with your primary physician. Stop smoking. Scripts No Active Prescriptions or Reported Meds Disposition: DISCHARGE HOME Condition: Stable Yossi Carlson MD Feb 26, 2017 15:33
[2017-02-26 15:40] LABS: ALT (GPT) 50 U/L (10-53); ANION GAP 11 MEQ/L (5-15); AST (GOT) 138 U/L (15-37); BLOOD UREA NITROGEN 4 MG/DL (7-18); CHLORIDE 105 MEQ/L (98-107); GLOMERULAR FILTRATION RATE 117 ML/MIN (>89); POTASSIUM 3.3 MEQ/L (3.5-5.1); SODIUM (NA) 145 MEQ/L (136-145)
[2017-02-26 15:42] LABS: ALKALINE PHOSPHATASE 89 U/L (45-117); TOTAL BILIRUBIN ADULT 0.5 MG/DL (0.2-1.0)
[2017-02-26 15:48] LABS: ALCOHOL 414 MG/DL (0-5)
--- NOTE | 2017-02-26 15:51 | RADRPT ---
EXAM DATE/TIME: 02/26/2017 15:36 [facility] COMPARISON: CHEST PA & LAT, July 07, 2015, 16:53. INDICATIONS : Shortness of breath, anxiety. MEDICAL HISTORY : Hypertension. SURGICAL HISTORY : None. ENCOUNTER: Initial ACUITY: 1 day PAIN SCORE: 0/10 LOCATION: Bilateral chest FINDINGS: A single view of the chest demonstrates the lungs to be symmetrically aerated without evidence of mas s, infiltrate or effusion. The cardiomediastinal contours are unremarkable. Osseous structures are intact. CONCLUSION: No evidence of acute cardiopulmonary disease. Kole Modi MD on February 26, 2017 at 15:49 Board Certified Radiologist. This report was verified electronically.
[2017-02-26] MEDS ORDERED: POTASSIUM CHLORIDE 20 MEQ CONTROLLED RELEASE TAB PO ONE (16:15)
[2017-02-26 17:19] VITALS: BP 121/74; PULSE 98; RESP 15; O2SAT 98
[2017-02-26 19:00] VITALS: BP 134/68; PULSE 81; RESP 18; O2SAT 99
== END 2017-02-27 01:01 | disposition home or self-care (01) ==
LOC: NEPE 14:57
DX: F10.120 Alcohol abuse with intoxication, uncomplicated (principal); Y90.8 Blood alcohol level of 240 mg/100 ml or more; F17.200 Nicotine dependence, unspecified, uncomplicated; F19.90 Other psychoactive substance use, unspecified, uncomplicated
CPT/HCPCS: 71010; 80053; 80307; 83735; 83880; 85025; 94664; 96360; 99284; J7030

== ENCOUNTER 2017-05-01 09:52 | Inpatient (IN) | payer SELFPAY ==
[2017-05-01] VITALS (9 sets, daily range): BP systolic 108–137; BP diastolic 70–93; PULSE 97–124; RESP 16–20; TEMP 97.9–99.7; O2SAT 96–100
[~2017-05-01] VITALS: Ht 175.3 cm; Wt 53.5 kg
[2017-05-01] MEDS ORDERED: DEXT 5%-NACL 0.9% 500 ML INJ 500 ML IV ONE (10:15)
[2017-05-01] MEDS ORDERED: THIAMINE INJ 100 MG in SODIUM CHLORIDE 0.9% INJ 100 ML IV ONE (10:15)
--- NOTE | 2017-05-01 10:17 | PD ---
HPI Chief Complaint: Alcohol/Drug Intoxication Time Seen by Provider: 10:02 Travel History International Travel<30 days: No Contact w/Intl Traveler<30days: No Traveled to known affect area: No History of Present Illness HPI This 41-year-old female is brought by her [id number]. Her mother in law was concerned about her ongoing drinking problem. Patient does drink every day in fact she's been drinking this morning. She also does drugs occasionally she does cocaine. The last time she used cocaine was 2 days ago. She went to detox about a year ago and was clean for about 6 months. She's been drinking for about 6 months. She does not have a history of seizures the [id number] says that when she tried to stand her up she is unable to walk. She has a history of a heart murmur. PFSH Past Medical History Hx Anticoagulant Therapy: No Asthma: Yes Anxiety: Yes Depression: Yes Chemotherapy: No Cerebrovascular Accident: No Diabetes: No Diminished Hearing: No Endocrine: No Gastrointestinal Disorders: Yes ("my pancreas is fed up") GERD: Yes Genitourinary: No Headaches: Yes Hepatitis: Yes (hep C) Hypertension: Yes Immune Disorder: No Implanted Vascular Access Dvce: No Musculoskeletal: Yes Neurologic: Yes Psychiatric: Yes Reproductive: No Immunizations Current: Yes ?: Not LMP: "LAST MONTH" : 1 Miscarriage: 1 Dilation and Curettage (D&C): Yes Past Surgical History Other Surgery: No Social History Alcohol Use: Yes (1 BOTTLE OF WHISKEY DAILY) Tobacco Use: Yes (/ ppd) Substance Use: Yes (LORTAB, MORPHINE, AND COCAINE) Allergies-Medications (Allergen,Severity, Reaction): Coded Allergies: Poultry (Unverified Allergy, Severe, SWELLING, 05/01/17) aspirin (Unverified Allergy, Severe, UNKNOWN, 05/01/17) bee venom protein (honey bee) (Unverified Allergy, Severe, 05/01/17) penicillin G (Unverified Allergy, Intermediate, 05/01/17) Reported Meds & Prescriptions Reported Meds & Active Scripts Active No Active Prescriptions or Reported Medications Review of Systems General / Constitutional: No: Fever, Chills Cardiovascular: No: Chest Pain or Discomfort Respiratory: No: Cough, Shortness of Breath Gastrointestinal: No: Vomiting, Diarrhea Genitourinary: No: Urgency Musculoskeletal: Positive: Weakness, No: Myalgias Skin: No Rash Neurologic: Positive: Weakness Psychiatric: Positive: Substance Abuse Hematologic/Lymphatic: Positive: Easy Bruising Physical Exam Narrative GENERAL: Chronically ill-appearing female SKIN: Focused skin assessment warm/dry. She has multiple bruises over her body HEAD: There is bruising in the scalp. Normocephalic. EYES: Pupils equal and round. No scleral icterus. No injection or drainage. Ear is nystagmus in all directions ENT: No nasal bleeding or discharge. Mucous membranes pink and moist. NECK: Trachea midline. No JVD. CARDIOVASCULAR: Regular rate and rhythm. No murmur appreciated. RESPIRATORY: No accessory muscle use. Clear to auscultation. Breath sounds equal bilaterally. GASTROINTESTINAL: Abdomen soft, non-tender, nondistended. Hepatic and splenic margins not palpable. MUSCULOSKELETAL: No obvious deformities. No clubbing. No cyanosis. No edema. NEUROLOGICAL: Awake and alert. There is coarse nystagmus in all floyd of gaze. An attempt to stand the patient she is extremely broad based gait is not able to walk. There is past pointing PSYCHIATRIC: Limited insight Data Data Last Documented VS Vital Signs Date Time Temp Pulse Resp B/P (MAP) Pulse Ox O2 Delivery O2 Flow Rate FiO2 05/01/17 12:10 123 20 110/88 (95) 98 Room Air 05/01/17 09:55 97.9 Orders Orders Complete Blood Count With Diff (05/01/17 10:10) Comprehensive Metabolic Panel (05/01/17 10:10) Creatine Kinase (Cpk) (05/01/17 10:10) Prothrombin Time / Inr (Pt) (05/01/17 10:10) Act Partial Throm Time (Ptt) (05/01/17 10:10) Lipase (05/01/17 10:10) Urinalysis - C+S If Indicated (05/01/17 10:10) Magnesium (Mg) (05/01/17 10:10) Ammonia (05/01/17 10:10) Drug Screen, Random Urine (05/01/17 10:10) Alcohol (Ethanol) (05/01/17 10:10) Thiamine Inj (Thiamine Inj) (05/01/17 10:15) Dext 5%-Nacl 0.9% 500 Ml Inj (D5w-Ns 500 (05/01/17 10:15) Ct Brain W/O Iv Contrast(Rout) (05/01/17 10:17) Urine Culture (05/01/17 10:30) Potassium Chloride (Kcl) (05/01/17 11:15) Labs Laboratory Tests Test 05/01/17 10:30 05/01/17 10:44 Urine Collection Type CLEAN CATCH Urine Color YELLOW Urine Turbidity SLIGHT Urine pH 6.0 Urine Specific Buckley 1.016 Urine Protein 100 mg/dL Urine Glucose (UA) NEG mg/dL Urine Ketones TRACE mg/dL Urine Occult Blood MOD Urine Nitrite NEG Urine Bilirubin NEG Urine Leukocyte Esterase SMALL Urine WBC 9-14 /hpf Urine Squamous Epithelial Cells > 8 /hpf Urine Amorphous Sediment MOD Urine Bacteria MANY /hpf Microscopic Urinalysis Comment CULTURE INDICATED Urine Collection Time 1030 Urine Opiates Screen NEG Urine Barbiturates Screen NEG Urine Amphetamines Screen NEG Urine Benzodiazepines Screen NEG Urine Cocaine Screen POS Urine Cannabinoids Screen NEG White Blood Count 7.7 TH/MM3 Red Blood Count 3.82 MIL/MM3 Hemoglobin 14.3 GM/DL Hematocrit 41.2 % Mean Corpuscular Volume 108.1 FL Mean Corpuscular Hemoglobin 37.4 PG Mean Corpuscular Hemoglobin Concent 34.6 % Red Cell Distribution Width 12.4 % Platelet Count 57 TH/MM3 Mean Platelet Volume 8.9 FL Neutrophils (%) (Auto) 72.7 % Lymphocytes (%) (Auto) 15.1 % Monocytes (%) (Auto) 11.9 % Eosinophils (%) (Auto) 0.1 % Basophils (%) (Auto) 0.2 % Neutrophils # (Auto) 5.6 TH/MM3 Lymphocytes # (Auto) 1.2 TH/MM3 Monocytes # (Auto) 0.9 TH/MM3 Eosinophils # (Auto) 0.0 TH/MM3 Basophils # (Auto) 0.0 TH/MM3 CBC Comment AUTO DIFF Prothrombin Time 10.4 SEC Prothromb Time International Ratio 0.9 RATIO Activated Partial Thromboplast Time 24.7 SEC Blood Urea Nitrogen 7 MG/DL Creatinine 0.57 MG/DL Random Glucose 135 MG/DL Total Protein 8.6 GM/DL Albumin 3.5 GM/DL Calcium Level 8.8 MG/DL Magnesium Level 1.9 MG/DL Alkaline Phosphatase 131 U/L Aspartate Amino Transf (AST/SGOT) 316 U/L Alanine Aminotransferase (ALT/SGPT) 75 U/L Total Bilirubin 1.0 MG/DL Sodium Level 132 MEQ/L Potassium Level 3.1 MEQ/L Chloride Level 91 MEQ/L Carbon Dioxide Level 25.9 MEQ/L Anion Gap 15 MEQ/L Estimat Glomerular Filtration Rate 117 ML/MIN Ammonia 41 MCMOL/L Total Creatine Kinase 149 U/L Lipase 466 U/L Ethyl Alcohol Level 390 MG/DL MDM Medical Decision Making Medical Screen Exam Complete: Yes Emergency Medical Condition: Yes Medical Record Reviewed: Yes Differential Diagnosis Differential includes subdural hematoma, alcohol intoxication, alcohol withdrawal, Wernicke's encephalopathy Narrative Course CT scan of the brain is negative. Her blood alcohol is 390. Potassium is low at 3.1, She has been given supplemental potassium. Ammonia level slightly elevated at 42. Patient has been observed. She has persistent tachycardia at about 120. Patient is not safe for discharge and will be admitted for observation Diagnosis Primary Impression: Alcohol intoxication Qualified Codes: F10.929 - Alcohol use, unspecified with intoxication, unspecified Additional Impression: Cerebellar dysfunction Admitting Information Admitting Physician Requests: Observation Scripts No Active Prescriptions or Reported Meds Yassine Little MD May 01, 2017 10:17
[2017-05-01 10:54] LABS: BLOOD, URINE MOD (NEG); GLUCOSE,URINE NEG (NEG); KETONE, URINE TRACE mg/dL (NEG); NITRITE,URINE NEG (NEG)
[2017-05-01 10:56] LABS: AUTOMATED NEUTROPHIL # 5.6 TH/MM3 (1.8-7.7); BASOPHIL % 0.2 % (0.0-2.0); EOSINOPHIL % 0.1 % (0.0-4.0); HEMATOCRIT 41.2 % (35.0-46.0); LYMPH % 15.1 % (9.0-44.0); LYMPHOCYTE # 1.2 TH/MM3 (1.0-4.8); MEAN CELL VOLUME 108.1 FL (80.0-100.0); MEAN CORPUSCULAR HEMOGLOBIN 37.4 PG (27.0-34.0); MEAN CORPUSCULAR HGB CONC 34.6 % (32.0-36.0); MONO % 11.9 % (0.0-8.0); NEUT % 72.7 % (16.0-70.0); PLATELET COUNT 57 TH/MM3 (150-450); RED BLOOD COUNT 3.82 MIL/MM3 (4.00-5.30); RED CELL DISTRIBUTION WIDTH 12.4 % (11.6-17.2); WHITE BLOOD COUNT 7.7 TH/MM3 (4.0-11.0)
[2017-05-01 10:57] LABS: CHLORIDE 91 MEQ/L (98-107); POTASSIUM 3.1 MEQ/L (3.5-5.1); SODIUM (NA) 132 MEQ/L (136-145)
[2017-05-01 10:58] LABS: METHOD OF COLLECTION CLEAN CATCH; URINE COLOR YELLOW (YELLW/STRAW)
[2017-05-01 10:59] LABS: BACTERIA, URINE MANY /hpf; COMMENT (UR) CULTURE INDICATED; CULTURE IF INDICATED CULTURE INDICATED; SQUAMOUS EPITHELIAL CELL URINE > 8 /hpf (0-5)
[2017-05-01 11:01] LABS: APTT (PATIENT) 24.7 SEC (24.3-30.1); INTERNATIONAL NORMALIZED RATIO 0.9 RATIO; PROTHROMBIN TIME - PATIENT 10.4 SEC (9.8-11.6)
[2017-05-01 11:02] LABS: ANION GAP 15 MEQ/L (5-15); BICARBONATE 25.9 MEQ/L (21.0-32.0); BLOOD UREA NITROGEN 7 MG/DL (7-18); MAGNESIUM 1.9 MG/DL (1.5-2.5)
[2017-05-01 11:05] LABS: ALT (GPT) 75 U/L (10-53); AST (GOT) 316 U/L (15-37); GLOMERULAR FILTRATION RATE 117 ML/MIN (>89)
[2017-05-01 11:08] LABS: CREATINE KINASE 149 U/L (26-192); HEMO FLAGS AUTO DIFF
[2017-05-01] MEDS ORDERED: POTASSIUM CHLORIDE 10 MEQ CONTROLLED RELEASE TAB PO ONE (11:15)
[2017-05-01 11:30] LABS: ALKALINE PHOSPHATASE 131 U/L (45-117)
--- NOTE | 2017-05-01 11:36 | RADRPT ---
EXAM DATE/TIME: 05/01/2017 11:19 [facility] COMPARISON: No previous studies available for comparison. INDICATIONS : Episode of altered mental status. RADIATION DOSE: 54.08 CTDIvol (mGy) MEDICAL HISTORY : Hypertension. Gastroesophageal reflux disease. Hepatitis C. SURGICAL HISTORY : None. ENCOUNTER: Initial ACUITY: 1 day PAIN SCALE: 0/10 LOCATION: cranial TECHNIQUE: Multiple contiguous axial images were obtained of the head. Using automated exposure control and adj ustment of the mA and/or kV according to patient size, radiation dose was kept as low as reasonably a chievable to obtain optimal diagnostic quality images. DICOM format image data is available electro nically for review and comparison. FINDINGS: CEREBRUM: The ventricles are normal for age. No evidence of midline shift, mass lesion, hemorrhage or acute in farction. No extra-axial fluid collections are seen. POSTERIOR FOSSA: The cerebellum and brainstem are intact. The 4th ventricle is midline. The cerebellopontine angle i s unremarkable. EXTRACRANIAL: The visualized portion of the orbits is intact. SKULL: The calvaria is intact. No evidence of skull fracture. CONCLUSION: Negative for an acute process. Jaquan Jack MD FACR on May 01, 2017 at 11:33 Board Certified Radiologist. This report was verified electronically.
[2017-05-01 11:45] LABS: ALCOHOL 390 MG/DL (0-5)
[2017-05-01] MEDS ORDERED: SODIUM CHLOR 0.45% 1000 ML INJ 1,000 ML IV SCH (12:26)
[2017-05-01] MEDS ORDERED: ALUMINUM/MAGNESIUM/SIMETH 30 ML CUP PO ONE (12:30)
[2017-05-01] MEDS ORDERED: FLUMAZENIL 0.5 MG/5 ML VIAL IV PUSH PRN (12:30)
[2017-05-01] MEDS ORDERED: SODIUM CHLOR 0.9% 1000 ML INJ 1,000 ML IV ONE (12:30)
[2017-05-01] MEDS ORDERED: LORazepam 2 MG/ML VIAL IV PUSH PRN (12:30)
[2017-05-01] MEDS ORDERED: LORazepam 2 MG TAB PO PRN (12:30)
[2017-05-01 12:45] LABS: PLATELET ESTIMATE SMEAR LOW (NORMAL); PLATELET MORPHOLOGY NORMAL (NORMAL); SCAN/DIFF AUTO DIFF CONFIRMED
--- NOTE | 2017-05-01 13:12 | RADRPT ---
EXAM DATE/TIME: 05/01/2017 12:58 [facility] COMPARISON: CHEST SINGLE AP, February 26, 2017, 15:36. INDICATIONS : Chest pain. MEDICAL HISTORY : Hypertension. SURGICAL HISTORY : None. ENCOUNTER: Initial ACUITY: 1 day PAIN SCORE: 10/10 LOCATION: Bilateral chest FINDINGS: A single view of the chest demonstrates the lungs to be symmetrically aerated without evidence of mas s, infiltrate or effusion. The cardiomediastinal contours are unremarkable. Apparent nipple shadows . Repeat exam markers is suggested. Osseous structures are intact. CONCLUSION: Probably negative, repeat exam with nipple markers.. Jaquan Jack MD FACR on May 01, 2017 at 13:09 Board Certified Radiologist. This report was verified electronically.
--- NOTE | 2017-05-01 16:04 | HHI.HP ---
HPI Service [facility] Primary Care Physician No Primary Care Physician Admission Diagnosis ALCOHOL ABUSE, CEREBELLAR DYSFUNCTION, TACHYCARDIS Diagnoses: Chief Complaint: seeking detoxification Travel History International Travel<30 Days: No Contact w/Intl Traveler <30 Da: No Traveled to Known Affected Are: No History of Present Illness 41-year-old white female being admitted for detoxification. Patient was in her usual state of health until last night when she began feeling some increased nausea. She states that she was trying to wean off of her own alcohol intake with plans of going to [facility] this morning. She states that she had multiple rounds of emesis this morning with no blood noted. [place] that her heart was racing. Had some diarrhea only today, about 3 times. Went to [facility] but was told that there was no bed availability. That she came to [place]. She states that normally she drinks anywhere from 1-24 packs of beer during the day and a bottle of whiskey at night and a beer can that she "sips" throughout the night. She states that yesterday she did have to 4 packs during the day, no whiskey at night and no beer can during the night - all w/ intentions of trying to wean off to go to [facility] for detoxification. She also does report using cocaine being snorted about 3 days ago. Says she does not do this much often. Patient says she's been drinking heavily like this for the past 3 months. Says the of her parents set her off on this habit this time around. She used to drink heavily before about a year ago and underwent detoxification then with good results. Review of Systems Except as stated in HPI: all other systems reviewed are Neg Past Family Social History Past Medical History Hepatitis C, alcohol usage Past Surgical History none Allergies: Coded Allergies: Poultry (Unverified Allergy, Severe, SWELLING, 05/01/17) aspirin (Unverified Allergy, Severe, UNKNOWN, 05/01/17) bee venom protein (honey bee) (Unverified Allergy, Severe, 05/01/17) penicillin G (Unverified Allergy, Intermediate, 05/01/17) Family History hypertension Social History Reports alcohol abuse, says that her also has the same issue. Admits to IV drug use in the past. Does smoke cig daily. Physical Exam Vital Signs Vital Signs Date Time Temp Pulse Resp B/P (MAP) Pulse Ox O2 Delivery O2 Flow Rate FiO2 05/01/17 14:27 98.0 122 20 108/88 (95) 98 05/01/17 13:36 05/01/17 13:16 108 20 100 Room Air 05/01/17 12:10 123 20 110/88 (95) 98 Room Air 05/01/17 11:06 104 18 117/93 (101) 99 Room Air 05/01/17 10:12 122 98 Room Air 05/01/17 10:12 122 18 123/82 (96) 99 Room Air 05/01/17 09:55 97.9 97 16 97 Physical Exam VS: Afebrile GENERAL: Very anxious and jittery SKIN: Warm and dry. Has a obvious bruise over the left trochanter, multiple small areas of scratches and smaller bruises throughout lower extremities EYES: Pupils appears slightly dilated more than usual and are very reactive to light. mild horizontal nystagmus noted bilaterally, No scleral icterus. No injection or drainage. ENT: No nasal bleeding or discharge. Mucous membranes pink and moist. CARDIOVASCULAR: Regular rate and rhythm. no murmurs RESPIRATORY: No accessory muscle use. Clear to auscultation. Breath sounds equal bilaterally. GASTROINTESTINAL: Abdomen soft, mild TTP diffusely, no rebound Extremities: No clubbing, cyanosis, or edema. No obvious deformities. MUSCULOSKELETAL: Extremities without clubbing, cyanosis, or edema. No obvious deformities. grossly intact ROM with 5/5 strength in upper and lower extremities proximally NEUROLOGICAL: Awake and alert. Has difficulty performing finger to nose bilaterally, PSYCHIATRIC: Appropriate mood and affect; insight and judgment normal. Laboratory Laboratory Tests Test 05/01/17 10:30 05/01/17 10:44 05/01/17 12:40 Urine Collection Type CLEAN CATCH Urine Color YELLOW Urine Turbidity SLIGHT Urine pH 6.0 Urine Specific [place] 1.016 Urine Protein 100 Urine Glucose (UA) NEG Urine Ketones TRACE Urine Occult Blood MOD Urine Nitrite NEG Urine Bilirubin NEG Urine Leukocyte Esterase SMALL Urine WBC 9-14 Urine Squamous Epithelial Cells > 8 Urine Amorphous Sediment MOD Urine Bacteria MANY Microscopic Urinalysis Comment CULTURE INDICATED Urine Collection Time 1030 Urine Opiates Screen NEG Urine Barbiturates Screen NEG Urine Amphetamines Screen NEG Urine Benzodiazepines Screen NEG Urine Cocaine Screen POS Urine Cannabinoids Screen NEG White Blood Count 7.7 Red Blood Count 3.82 Hemoglobin 14.3 Hematocrit 41.2 Mean Corpuscular Volume 108.1 Mean Corpuscular Hemoglobin 37.4 Mean Corpuscular Hemoglobin Concent 34.6 Red Cell Distribution Width 12.4 Platelet Count 57 Mean Platelet Volume 8.9 Neutrophils (%) (Auto) 72.7 Lymphocytes (%) (Auto) 15.1 Monocytes (%) (Auto) 11.9 Eosinophils (%) (Auto) 0.1 Basophils (%) (Auto) 0.2 Neutrophils # (Auto) 5.6 Lymphocytes # (Auto) 1.2 Monocytes # (Auto) 0.9 Eosinophils # (Auto) 0.0 Basophils # (Auto) 0.0 CBC Comment AUTO DIFF Differential Comment AUTO DIFF CONFIRMED Platelet Estimate LOW Platelet Morphology Comment NORMAL Prothrombin Time 10.4 Prothromb Time International Ratio 0.9 Activated Partial Thromboplast Time 24.7 Blood Urea Nitrogen 7 Creatinine 0.57 Random Glucose 135 Total Protein 8.6 Albumin 3.5 Calcium Level 8.8 Magnesium Level 1.9 Alkaline Phosphatase 131 Aspartate Amino Transf (AST/SGOT) 316 Alanine Aminotransferase (ALT/SGPT) 75 Total Bilirubin 1.0 Sodium Level 132 Potassium Level 3.1 Chloride Level 91 Carbon Dioxide Level 25.9 Anion Gap 15 Estimat Glomerular Filtration Rate 117 Ammonia 41 Total Creatine Kinase 149 Lipase 466 Ethyl Alcohol Level 390 Troponin I LESS THAN 0.02 Date/Time Source Procedure Growth Status 05/01/17 10:30 Urine Clean Catch Urine Culture Pending Worksheet Result Diagram: 05/01/17 1044 05/01/17 1044 Caprini VTE Risk Assessment Caprini VTE Risk Assessment: No/Low Risk (score <= 1) Caprini Risk Assessment Model Point Value = 1 Point Value = 2 Point Value = 3 Point Value = 5 Age 41-60 Minor surgery BMI > 25 kg/m2 Swollen legs Varicose veins or History of unexplained or recurrent spontaneous Oral contraceptives or hormone replacement Sepsis (< 1 month) Serious lung disease, including pneumonia (< 1 month) Abnormal pulmonary function Acute myocardial infarction Congestive heart failure (< 1 month) History of inflammatory bowel disease Medical patient at bed rest Age 61-74 Arthroscopic surgery Major open surgery (> 45 min) Laparoscopic surgery (> 45 min) Malignancy Confined to bed (> 72 hours) Immobilizing plaster cast Central venous access Age >= 75 History of VTE Family history of VTE Factor V Leiden Prothrombin [id number] Lupus anticoagulant Anticardiolipin antibodies Elevated serum homocysteine Heparin-induced thrombocytopenia Other congenital or acquired thrombophilia Stroke (< 1 month) Elective arthroplasty Hip, pelvis, or leg fracture Acute spinal cord injury (< 1 month) Prophylaxis Regimen Total Risk Factor Score Risk Level Prophylaxis Regimen 0-1 Low Early ambulation 2 Moderate Order ONE of the following: *Sequential Compression Device (SCD) *Heparin 5000 units SQ BID 3-4 Higher Order ONE of the following medications: *Heparin 5000 units SQ TID *Enoxaparin/Lovenox 40 mg SQ daily (WT < 150 kg, CrCl > 30 mL/min) *Enoxaparin/Lovenox 30 mg SQ daily (WT < 150 kg, CrCl > 10-29 mL/min) *Enoxaparin/Lovenox 30 mg SQ BID (WT < 150 kg, CrCl > 30 mL/min) AND/OR *Sequential Compression Device (SCD) 5 or more Highest Order ONE of the following medications: *Heparin 5000 units SQ TID (Preferred with Epidurals) *Enoxaparin/Lovenox 40 mg SQ daily (WT < 150 kg, CrCl > 30 mL/min) *Enoxaparin/Lovenox 30 mg SQ daily (WT < 150 kg, CrCl > 10-29 mL/min) *Enoxaparin/Lovenox 30 mg SQ BID (WT < 150 kg, CrCl > 30 mL/min) AND *Sequential Compression Device (SCD) Assessment and Plan Problem List: (1) Alcohol withdrawal ICD Code: F10.239 - Alcohol dependence with withdrawal, unspecified Status: Acute (2) Cerebellar dysfunction ICD Code: G93.40 - Encephalopathy, unspecified Status: Acute Assessment and Plan ETOH intoxication - We'll place on CIWA protocol, fall precautions - May consult consider consulting psychiatry for assistance with this - Thiamine injections continued - Would definitely prefer to use chlordiazepoxide for impending withdrawal but given hepatic impairment, we'll hold off on this for now until LFTs stabilize - D5 NS + KCL Suspected mild Cocaine intoxication - Minimize usage of beta blockers for any severe hypertension that may come from the withdrawals - IVFs, would like to give give aspirin to buffer any thrombus risk from cardiac vasoconstriction listed as severe allergy, - trending troponin and CK x 1 - already given ativan injection - ativan po prn HR > 110 Elevated LFTs - Likely secondary to hepatitis C vs cocaine ischemia vs possible superimposed fatty liver - IV fluids - Trend LFTs - INR is 0.9 Hyperammonemia - likely from hepatic impairment - giving lactulose x 1 orally Physician Certification 2 Midnight Certification Type: Admission for Inpatient Services Order for Inpatient Services The services are ordered in accordance with Medicare regulations or non- Medicare payer requirements, as applicable. In the case of services not specified as inpatient-only, they are appropriately provided as inpatient services in accordance with the 2-midnight benchmark. Estimated LOS (days): 3 3 days is the estimated time the patient will need to remain in the hospital, assuming treatment plan goals are met and no additional complications. Post-Hospital Plan: Home Michael Huertas MD May 01, 2017 16:04
[2017-05-01] MEDS ORDERED: D5-1/2 NS + KCL 10 MEQ INJ 1,000 ML IV SCH (16:15)
[2017-05-01] MEDS: LORazepam 2 MG/ML VIAL IV PUSH PRN (16:20)
[2017-05-01] MEDS: POTASSIUM CHLORIDE IV SCH (18:40)
[2017-05-01] MEDS: NACL 0.45% IV SCH (18:40)
[2017-05-01] MEDS: DEXT 5% IV SCH (18:40)
[2017-05-01] MEDS ORDERED: IBUPROFEN 200 MG TAB PO PRN (19:00)
[2017-05-01] MEDS: SODIUM CHLORIDE 0.9% FLUSH 10 ML FLUSH IV FLUSH SCH (20:13)
[2017-05-01] MEDS: LORazepam 1 MG TAB PO PRN (20:20)
[2017-05-01] MEDS ORDERED: ASPIRIN 325 MG TAB PO ONE (20:45)
[2017-05-01] MEDS ORDERED: LORazepam 2 MG/ML VIAL IV PUSH ONE (20:45)
[2017-05-01] MEDS ORDERED: LORazepam 1 MG TAB PO PRN (21:00)
[2017-05-01] MEDS ORDERED: LACTULOSE SYRUP 20 GM/30 ML CUP PO ONE (21:00)
[2017-05-02] VITALS (9 sets, daily range): BP systolic 133–153; BP diastolic 91–106; PULSE 94–121; RESP 16–18; TEMP 97.4–100; O2SAT 95–100
[2017-05-02] MEDS: LORazepam 1 MG TAB PO PRN ×3 (03:29→15:33)
[2017-05-02] MEDS: POTASSIUM CHLORIDE IV SCH (03:29)
[2017-05-02] MEDS: NACL 0.45% IV SCH (03:29)
[2017-05-02] MEDS: DEXT 5% IV SCH (03:29)
[2017-05-02 08:26] LABS: ALKALINE PHOSPHATASE 107 U/L (45-117); ALT (GPT) 59 U/L (10-53); ANION GAP 8 MEQ/L (5-15); AST (GOT) 224 U/L (15-37); BICARBONATE 29.2 MEQ/L (21.0-32.0); BLOOD UREA NITROGEN 8 MG/DL (7-18); CHLORIDE 93 MEQ/L (98-107); GLOMERULAR FILTRATION RATE 134 ML/MIN (>89); SODIUM (NA) 130 MEQ/L (136-145); TOTAL BILIRUBIN ADULT 1.5 MG/DL (0.2-1.0)
[2017-05-02 08:30] LABS: POTASSIUM 2.8 MEQ/L (3.5-5.1)
[2017-05-02] MEDS: SODIUM CHLORIDE 0.9% FLUSH 10 ML FLUSH IV FLUSH SCH ×2 (08:39→20:01)
[2017-05-02] MEDS ORDERED: ASPIRIN 325 MG TAB PO SCH (09:00)
[2017-05-02] MEDS ORDERED: POTASSIUM CHLORIDE 20 MEQ CONTROLLED RELEASE TAB PO ONE (11:00)
[2017-05-02] MEDS ORDERED: MAGNESIUM SULFATE 1 GM/2 ML VIAL IM ONE (11:30)
[2017-05-02] MEDS ORDERED: MAGNESIUM SULFATE 1 GM PREMIX 100 ML IV ONE (12:00)
[2017-05-02] MEDS: THIAMINE INJ 100 MG in SODIUM CHLORIDE 0.9% INJ 100 ML IV SCH (12:00)
[2017-05-02] MEDS: LACTULOSE SYRUP 20 GM/30 ML CUP PO SCH (15:33)
[2017-05-02] MEDS ORDERED: SODIUM CHLOR 0.9% 1000 ML INJ 1,000 ML IV ONE (15:45)
--- NOTE | 2017-05-02 15:48 | HHI.PR ---
Subjective Remarks Nursing denies any acute deterioration since last night other than the CIWA score being 9. Pt reports having some nausea but improved since admission. Patient is trying to participate especially as she can with physical therapy. Objective Vital Signs Date Time Temp Pulse Resp B/P (MAP) Pulse Ox O2 Delivery O2 Flow Rate FiO2 05/02/17 12:00 98.8 106 18 152/100 (117) 100 05/02/17 08:00 98.9 99 18 134/91 (105) 99 05/02/17 04:00 97.4 94 18 153/106 (122) 100 05/02/17 00:00 100.0 121 18 133/92 (106) 100 05/01/17 20:00 102 05/01/17 20:00 99.7 111 20 137/93 (108) 97 05/01/17 18:00 101 05/01/17 16:00 98.1 124 19 112/70 (84) 96 I/O 05/01/17 05/01/17 05/01/17 05/02/17 05/02/17 05/02/17 07:00 15:00 23:00 07:00 15:00 23:00 Intake Total 1601 ml 0 ml 60 ml 101 ml Balance 1601 ml 0 ml 60 ml 101 ml Intake Oral 0 ml 60 ml IV Total 1601 ml 101 ml # Voids 0 3 # Bowel Movements 0 3 1 Result Diagram: 05/01/17 1044 05/02/17 0730 Objective Remarks Alert and awake no nystagmus unlabored breathing A/P Assessment and Plan ETOH intoxication - clinically improving, continue CIWA protocol, fall precautions - May consult consider consulting psychiatry for assistance with this - Thiamine injections continued - Would definitely prefer to use chlordiazepoxide for impending withdrawal but given hepatic impairment, we'll hold off on this for now until LFTs stabilize Suspected mild Cocaine intoxication - clinically improving but still HR > 100 +, Minimize usage of beta blockers for any severe hypertension that may come from the withdrawals - IVFs, would like to give give aspirin to buffer any thrombus risk from cardiac vasoconstriction listed as severe allergy, - troponin are negative - PO Xanax prn HR > 100 Elevated LFTs - Likely secondary to hepatitis C vs cocaine ischemia vs possible superimposed fatty liver - improving, continue IV fluids - Trend LFTs Hyperammonemia - Ammonia level 30+ today, we'll give another dose of lactulose - likely from hepatic impairment Hypokalemia - possibly due to low mag (2/2 ETOH use) - replacing with 60 meq today and replacing MG IV - repeat levels D/w Phy. T, unable to fully assess pt due to autonomic instability, reinforcing to RN that pt can receive PO benzodiazepine prn tachycardia. Michael Huertas MD May 02, 2017 15:48
[2017-05-02] MEDS ORDERED: PILL SPLITTER OTHER PRN (16:15)
[2017-05-02] MEDS: SODIUM CHLOR 0.9% 1000 ML INJ 1,000 ML IV SCH (16:55)
[2017-05-02] MEDS: ALPRAZolam 0.25 MG TAB PO PRN (18:09)
--- NOTE | 2017-05-02 18:09 | EKG ---
Date Performed: 05/01/2017 Time Performed: 12:32:19 PTAGE: 41 years EKG: SINUS TACHYCARDIA MODERATE VOLTAGE CRITERIA FOR LVH, CONSIDER NORMAL VARIANT NONSPECIFIC ST & T-WAVE ABNORMALITY ABNORMAL RHYTHM ECG Compared to prior tracing no significant change PREVIOUS TRACING : 11/20/2015 20.46.12 DOCTOR: Leora Oliver Interpretating Date/Time 05/02/2017 18:08:50
[2017-05-02] MEDS: ENALAPRILAT 1.25 MG/ML VIAL IV PUSH PRN (20:00)
[2017-05-02] MEDS: LORazepam 2 MG/ML VIAL IV PUSH PRN ×2 (20:11→22:55)
[2017-05-02] MEDS: SODIUM CHLORIDE 0.9% FLUSH 10 ML FLUSH IV FLUSH PRN ×2 (20:11→22:55)
[2017-05-03] VITALS (8 sets, daily range): BP systolic 120–149; BP diastolic 82–101; PULSE 81–120; RESP 16–20; TEMP 97.1–99.3; O2SAT 98–100
[2017-05-03] MEDS: ALPRAZolam 0.25 MG TAB PO PRN (01:02)
[2017-05-03] MEDS: LORazepam 2 MG/ML VIAL IV PUSH PRN ×7 (01:10→23:59)
[2017-05-03] MEDS: SODIUM CHLORIDE 0.9% FLUSH 10 ML FLUSH IV FLUSH PRN ×5 (01:10→21:08)
[2017-05-03] MEDS: SODIUM CHLOR 0.9% 1000 ML INJ 1,000 ML IV SCH ×2 (03:57→18:38)
[2017-05-03 06:53] LABS: ALKALINE PHOSPHATASE 100 U/L (45-117); ALT (GPT) 49 U/L (10-53); ANION GAP 9 MEQ/L (5-15); AST (GOT) 132 U/L (15-37); BLOOD UREA NITROGEN 5 MG/DL (7-18); CHLORIDE 99 MEQ/L (98-107); GLOMERULAR FILTRATION RATE 237 ML/MIN (>89); MAGNESIUM 1.2 MG/DL (1.5-2.5); SODIUM (NA) 136 MEQ/L (136-145); TOTAL BILIRUBIN ADULT 1.1 MG/DL (0.2-1.0)
[2017-05-03 07:11] LABS: POTASSIUM 2.7 MEQ/L (3.5-5.1)
[2017-05-03] MEDS: MAGNESIUM SULFATE 1 GM PREMIX 100 ML IV SCH ×2 (09:31→10:25)
[2017-05-03] MEDS: POTASSIUM CHLOR 10 MEQ PREMIX 100 ML IV SCH ×6 (09:32→23:26)
[2017-05-03] MEDS: LACTULOSE SYRUP 20 GM/30 ML CUP PO SCH (09:32)
[2017-05-03] MEDS: POTASSIUM CHLORIDE 20 MEQ CONTROLLED RELEASE TAB PO SCH ×2 (09:33→20:17)
[2017-05-03] MEDS: MAGNESIUM OXIDE 400 MG TAB PO SCH ×2 (09:33→20:17)
[2017-05-03] MEDS: CIPROFLOXACIN 500 MG TAB PO SCH ×2 (09:34→20:17)
[2017-05-03] MEDS: SODIUM CHLORIDE 0.9% FLUSH 10 ML FLUSH IV FLUSH SCH ×2 (09:34→20:17)
--- NOTE | 2017-05-03 12:27 | HHI.PR ---
Subjective Remarks Patient complains of significant anxiety which she states is not controlled by the Ativan. She denies tremors, hallucinations. Patient does complain of some mild diffuse abdominal pain. She vomited once today and once yesterday. Patient is requesting Librium with Ativan as needed for anxiety. Objective Vitals Vital Signs Date Time Temp Pulse Resp B/P (MAP) Pulse Ox O2 Delivery O2 Flow Rate FiO2 05/03/17 07:50 97.1 87 20 149/93 (111) 99 05/03/17 04:00 98.9 100 16 136/92 (107) 98 05/03/17 00:00 99.3 120 16 120/82 (95) 98 05/02/17 20:20 99 05/02/17 20:00 98.4 95 16 138/100 (113) 95 05/02/17 18:09 108 05/02/17 17:38 95 05/02/17 16:00 98.1 95 18 143/97 (112) 96 I/O 05/02/17 05/02/17 05/02/17 05/03/17 05/03/17 05/03/17 07:00 15:00 23:00 07:00 15:00 23:00 Intake Total 60 ml 101 ml 1340 ml 2347 ml Output Total 2 ml 600 ml Balance 60 ml 101 ml 1338 ml 1747 ml Intake Oral 60 ml 240 ml 360 ml IV Total 101 ml 1100 ml 1987 ml Output Urine Total 600 ml Stool Total 2 ml # Voids 3 2 # Bowel Movements 3 1 3 Result Diagram: 05/01/17 1044 05/03/17 0605 Objective Remarks GENERAL: Well-nourished, well-developed petite female patient. Anxious. SKIN: Warm and dry. HEAD: Normocephalic. EYES: No scleral icterus. No injection or drainage. NECK: Supple, trachea midline. No JVD or lymphadenopathy. CARDIOVASCULAR: Regular rate and rhythm without murmurs, gallops, or rubs. RESPIRATORY: Breath sounds equal bilaterally. No accessory muscle use. GASTROINTESTINAL: Bowel sounds normal. Abdomen soft, non-tender, nondistended. EXTREMITIES: No cyanosis, or edema. NEUROLOGICAL: Awake, alert, and oriented x 3. Non-focal. No extremity tremors. A/P Problem List: (1) Alcohol withdrawal ICD Code: F10.239 - Alcohol dependence with withdrawal, unspecified Status: Acute (2) Cocaine abuse ICD Code: F14.10 - Cocaine abuse, uncomplicated Status: Acute (3) Hepatitis C ICD Code: B19.20 - Unspecified viral hepatitis C without hepatic coma Status: Chronic (4) Hypokalemia ICD Code: E87.6 - Hypokalemia Status: Acute (5) Alcohol abuse ICD Code: F10.10 - Alcohol abuse, uncomplicated Status: Acute (6) Alcohol intoxication ICD Code: F10.129 - Alcohol abuse with intoxication, unspecified Status: Resolved (7) Transaminitis ICD Code: R74.0 - Nonspecific elevation of levels of transaminase and lactic acid dehydrogenase [LDH] Status: Resolved (8) Hypomagnesemia ICD Code: E83.42 - Hypomagnesemia Status: Acute (9) UTI (urinary tract infection) ICD Code: N39.0 - Urinary tract infection, site not specified Status: Acute Assessment and Plan -Alcohol withdrawal. Symptoms appear to be improving. Tachycardia improved. No hallucinations or tremors. Her main symptom is anxiety. Start librium 10 mg PO TID to hold for sedation. Continue CIWA protocol with ativan prn. Alcohol cessation discussed. -Nausea, abdominal pain with emesis 2. 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 Lipase was not elevated. We'll start Protonix. If symptoms persist may need to have GI see her. -Escherichia coli UTI. Start Cipro. -Transaminitis due to alcohol use. Trended down. -Hypokalemia and hypomagnesemia. We'll replete via IV and orally. Repeat labs subsequent repletion. -Mild hyperammonemia, resolved. -Cocaine abuse. Avoidance of cocaine counseled the patient. -Tobacco use, cessation advised. Continue nicotine patch as needed. Problem Qualifiers (1) UTI (urinary tract infection): Laura Whiting MD May 03, 2017 12:27
[2017-05-03] MEDS: THIAMINE INJ 100 MG in SODIUM CHLORIDE 0.9% INJ 100 ML IV SCH (12:47)
[2017-05-03] MEDS: PANTOPRAZOLE SOD 40 MG DELAYED RELEASE TAB PO SCH (17:10)
[2017-05-03] MEDS: ENALAPRILAT 1.25 MG/ML VIAL IV PUSH PRN (20:30)
[2017-05-03] MEDS ORDERED: POTASSIUM CHLORIDE 25 MEQ EFFERVESCENT TAB PO ONE (21:00)
[2017-05-04] VITALS: BP 180/93; PULSE 91; RESP 20; TEMP 98.6; O2SAT 100
[2017-05-04] MEDS ORDERED: ALUMINUM/MAGNESIUM/SIMETH 30 ML CUP PO ONE (01:15)
[2017-05-04] MEDS: LORazepam 2 MG/ML VIAL IV PUSH PRN ×4 (01:30→08:13)
[2017-05-04] MEDS: SODIUM CHLORIDE 0.9% FLUSH 10 ML FLUSH IV FLUSH PRN ×3 (01:30→06:41)
[2017-05-04] MEDS: SODIUM CHLOR 0.9% 1000 ML INJ 1,000 ML IV SCH (03:10)
[2017-05-04 04:00] VITALS: BP 137/89; PULSE 80; RESP 20; TEMP 97.9; O2SAT 99
[2017-05-04 07:19] LABS: BICARBONATE 26.4 MEQ/L (21.0-32.0); MAGNESIUM 1.6 MG/DL (1.5-2.5); POTASSIUM 3.7 MEQ/L (3.5-5.1)
[2017-05-04] MEDS: SODIUM CHLORIDE 0.9% FLUSH 10 ML FLUSH IV FLUSH SCH (07:31)
[2017-05-04 08:00] VITALS: BP 135/112; PULSE 94; RESP 18; TEMP 97.7; O2SAT 96
[2017-05-04] MEDS: LACTULOSE SYRUP 20 GM/30 ML CUP PO SCH (08:12)
[2017-05-04] MEDS: CIPROFLOXACIN 500 MG TAB PO SCH (08:13)
[2017-05-04] MEDS: PANTOPRAZOLE SOD 40 MG DELAYED RELEASE TAB PO SCH (08:13)
[2017-05-04] MEDS: MAGNESIUM OXIDE 400 MG TAB PO SCH (08:13)
[2017-05-04] MEDS: POTASSIUM CHLORIDE 20 MEQ CONTROLLED RELEASE TAB PO SCH (08:13)
--- NOTE | 2017-05-04 10:12 | HHI.PR ---
Subjective Remarks Patient very upset with her [employer] says she is treating her badly, patient is upset and wants to go home. She feels she is no longer having withdrawal symptoms, just anxiety. Patient requests several day prescription librium for anxiety. Patient agrees to f/u at [facility]. Patient denies sweats, tremors, nausea vomiting. Objective Vitals Vital Signs Date Time Temp Pulse Resp B/P (MAP) Pulse Ox O2 Delivery O2 Flow Rate FiO2 05/04/17 08:00 97.7 94 18 135/112 (120) 96 05/04/17 04:00 97.9 80 20 137/89 (105) 99 05/04/17 00:00 98.6 91 20 180/93 (122) 100 05/03/17 20:00 86 05/03/17 20:00 98.0 92 20 136/101 (113) 99 05/03/17 15:30 97.7 81 20 145/95 (112) 100 05/03/17 11:50 97.5 95 20 137/94 (108) 99 I/O 05/03/17 05/03/17 05/03/17 05/04/17 05/04/17 05/04/17 07:00 15:00 23:00 07:00 15:00 23:00 Intake Total 2347 ml 100 ml 1876 ml Output Total 600 ml Balance 1747 ml 100 ml 1876 ml Intake Oral 360 ml 720 ml IV Total 1987 ml 100 ml 1156 ml Output Urine Total 600 ml # Voids 4 # Bowel Movements 3 1 Result Diagram: 05/01/17 1044 05/04/17 0613 Objective Remarks GENERAL: Well-nourished, well-developed petite female patient. Anxious. SKIN: Warm and dry. HEAD: Normocephalic. EYES: No scleral icterus. No injection or drainage. NECK: Supple, trachea midline. No JVD or lymphadenopathy. CARDIOVASCULAR: Regular rate and rhythm without murmurs, gallops, or rubs. RESPIRATORY: Breath sounds equal bilaterally. No accessory muscle use. GASTROINTESTINAL: Bowel sounds normal. Abdomen soft, non-tender, nondistended. EXTREMITIES: No cyanosis, or edema. NEUROLOGICAL: Awake, alert, and oriented x 3. Non-focal. No extremity tremors. A/P Problem List: (1) Alcohol withdrawal ICD Code: F10.239 - Alcohol dependence with withdrawal, unspecified Status: Acute (2) Cocaine abuse ICD Code: F14.10 - Cocaine abuse, uncomplicated Status: Acute (3) Hepatitis C ICD Code: B19.20 - Unspecified viral hepatitis C without hepatic coma Status: Chronic (4) Hypokalemia ICD Code: E87.6 - Hypokalemia Status: Acute (5) Alcohol abuse ICD Code: F10.10 - Alcohol abuse, uncomplicated Status: Acute (6) Alcohol intoxication ICD Code: F10.129 - Alcohol abuse with intoxication, unspecified Status: Resolved (7) Transaminitis ICD Code: R74.0 - Nonspecific elevation of levels of transaminase and lactic acid dehydrogenase [LDH] Status: Resolved (8) Hypomagnesemia ICD Code: E83.42 - Hypomagnesemia Status: Acute (9) UTI (urinary tract infection) ICD Code: N39.0 - Urinary tract infection, site not specified Status: Acute Assessment and Plan -Alcohol withdrawal. Symptoms appear to be improving. Tachycardia improved. No hallucinations or tremors. Her main symptom is anxiety. Continue librium 10 mg PO TID. Patient wants to be discharged today, agrees to abstain from ETOH, agrees to f/u at [facility]. patient advised of risk of resp failure if uses alcohol concurrently with benzodiazepines. -Nausea, abdominal pain with emesis 2. resolved. 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 Lipase was not elevated. -Escherichia coli UTI. cont Cipro. patient advised she can receive this for free from [facility]. -Transaminitis due to alcohol use. Trended down. -Hypokalemia and hypomagnesemia. electrolytes normal today. -Mild hyperammonemia, resolved. -Cocaine abuse. Avoidance of cocaine counseled the patient. -Tobacco use, cessation advised. DC home today. Problem Qualifiers (1) UTI (urinary tract infection): Laura Whiting MD May 04, 2017 10:12
--- NOTE | 2017-05-04 10:13 | HHI.DS ---
Discharge Summary Admission Date May 01, 2017 at 12:29 Discharge Date: May 04, 2017 Admitting Diagnosis ALCOHOL ABUSE, CEREBELLAR DYSFUNCTION, TACHYCARDIS (1) Alcohol withdrawal ICD Code: F10.239 - Alcohol dependence with withdrawal, unspecified Status: Acute (2) Cocaine abuse ICD Code: F14.10 - Cocaine abuse, uncomplicated Status: Acute (3) Hepatitis C ICD Code: B19.20 - Unspecified viral hepatitis C without hepatic coma Status: Chronic (4) Hypokalemia ICD Code: E87.6 - Hypokalemia Status: Acute (5) Alcohol abuse ICD Code: F10.10 - Alcohol abuse, uncomplicated Status: Acute (6) Alcohol intoxication ICD Code: F10.129 - Alcohol abuse with intoxication, unspecified Status: Resolved (7) Transaminitis ICD Code: R74.0 - Nonspecific elevation of levels of transaminase and lactic acid dehydrogenase [LDH] Status: Resolved (8) Hypomagnesemia ICD Code: E83.42 - Hypomagnesemia Status: Acute (9) UTI (urinary tract infection) ICD Code: N39.0 - Urinary tract infection, site not specified Status: Acute Procedures None Brief History - From Admission 41-year-old white female being admitted for detoxification. Patient was in her usual state of health until last night when she began feeling some increased nausea. She states that she was trying to wean off of her own alcohol intake with plans of going to [facility] this morning. She states that she had multiple rounds of emesis this morning with no blood noted. Nakina that her heart was racing. Had some diarrhea only today, about 3 times. Went to [facility] but was told that there was no bed availability. That she came to [place] [place] ER. She states that normally she drinks anywhere from 1-24 packs of beer during the day and a bottle of whiskey at night and a beer can that she "sips" throughout the night. She states that yesterday she did have to 4 packs during the day, no whiskey at night and no beer can during the night - all w/ intentions of trying to wean off to go to [facility] for detoxification. She also does report using cocaine being snorted about 3 days ago. Says she does not do this much often. Patient says she's been drinking heavily like this for the past 3 months. Says the of her parents set her off on this habit this time around. She used to drink heavily before about a year ago and underwent detoxification then with good results. CBC/BMP: 05/01/17 1044 05/04/17 0613 Significant Findings Laboratory Tests Test 05/01/17 10:30 05/01/17 10:44 05/01/17 12:40 05/01/17 20:55 Urine Protein 100 mg/dL (NEG-TRACE) Urine Ketones TRACE mg/dL (NEG) Urine Occult Blood MOD (NEG) Urine Leukocyte Esterase SMALL (NEG) Urine WBC 9-14 /hpf (0-5) Urine Squamous Epithelial Cells > 8 /hpf (0-5) Urine Bacteria MANY /hpf (NONE) Urine Cocaine Screen POS (NEG) Red Blood Count 3.82 MIL/MM3 (4.00-5.30) Mean Corpuscular Volume 108.1 FL (80.0-100.0) Mean Corpuscular Hemoglobin 37.4 PG (27.0-34.0) Platelet Count 57 TH/MM3 (150-450) Neutrophils (%) (Auto) 72.7 % (16.0-70.0) Monocytes (%) (Auto) 11.9 % (0.0-8.0) Platelet Estimate LOW (NORMAL) Random Glucose 135 MG/DL (74-106) Total Protein 8.6 GM/DL (6.4-8.2) Alkaline Phosphatase 131 U/L (45-117) Aspartate Amino Transf (AST/SGOT) 316 U/L (15-37) Alanine Aminotransferase (ALT/SGPT) 75 U/L (10-53) Sodium Level 132 MEQ/L (136-145) Potassium Level 3.1 MEQ/L (3.5-5.1) Chloride Level 91 MEQ/L (98-107) Ammonia 41 MCMOL/L (11-32) Lipase 466 U/L (73-393) Ethyl Alcohol Level 390 MG/DL (0-5) Troponin I LESS THAN 0.02 NG/ML LESS THAN 0.02 NG/ML Test 05/01/17 23:45 05/02/17 07:30 05/03/17 06:05 05/03/17 19:45 Troponin I LESS THAN 0.02 NG/ML Random Glucose 109 MG/DL (74-106) Albumin 2.9 GM/DL (3.4-5.0) 2.7 GM/DL (3.4-5.0) Calcium Level 7.9 MG/DL (8.5-10.1) 7.9 MG/DL (8.5-10.1) Aspartate Amino Transf (AST/SGOT) 224 U/L (15-37) 132 U/L (15-37) Alanine Aminotransferase (ALT/SGPT) 59 U/L (10-53) Total Bilirubin 1.5 MG/DL (0.2-1.0) 1.1 MG/DL (0.2-1.0) Sodium Level 130 MEQ/L (136-145) Potassium Level 2.8 MEQ/L (3.5-5.1) 2.7 MEQ/L (3.5-5.1) 2.8 MEQ/L (3.5-5.1) Chloride Level 93 MEQ/L (98-107) Magnesium Level 1.2 MG/DL (1.5-2.5) 1.2 MG/DL (1.5-2.5) Ammonia 36 MCMOL/L (11-32) Blood Urea Nitrogen 5 MG/DL (7-18) Creatinine 0.31 MG/DL (0.50-1.00) Test 05/04/17 06:13 Blood Urea Nitrogen 5 MG/DL (7-18) Creatinine 0.40 MG/DL (0.50-1.00) Calcium Level 7.9 MG/DL (8.5-10.1) Imaging Last Impressions Chest X-Ray 05/01/17 1231 Signed Impressions: Service Date/Time: Monday, May 01, 2017 12:58 - CONCLUSION: Probably negative, repeat exam with nipple markers.. Jaquan Jack MD FACR Head CT 05/01/17 1017 Signed Impressions: Service Date/Time: Monday, May 01, 2017 11:19 - CONCLUSION: Negative for an acute process. Jaquan Jack MD FACR PE at Discharge GENERAL: Well-nourished, well-developed petite female patient. Anxious. SKIN: Warm and dry. HEAD: Normocephalic. EYES: No scleral icterus. No injection or drainage. NECK: Supple, trachea midline. No JVD or lymphadenopathy. CARDIOVASCULAR: Regular rate and rhythm without murmurs, gallops, or rubs. RESPIRATORY: Breath sounds equal bilaterally. No accessory muscle use. GASTROINTESTINAL: Bowel sounds normal. Abdomen soft, non-tender, nondistended. EXTREMITIES: No cyanosis, or edema. NEUROLOGICAL: Awake, alert, and oriented x 3. Non-focal. No extremity tremors. Hospital Course -Alcohol withdrawal. Symptoms appear to be improving. Tachycardia improved. No hallucinations or tremors. Her main symptom is anxiety which appears to be severe. She is still requesting IV Ativan. The patient requests a prescription for Librium. I recommend the patient stay in the hospital another day however patient is very angry with her nurses and insists on being discharged. Continue librium 10 mg PO TID. Patient wants to be discharged today , agrees to abstain from ETOH, agrees to f[facility]. patient advised of risk of resp failure if uses alcohol concurrently with benzodiazepines. I did discuss starting her on an SSRI however she prefers to follow up with [facility] psychiatric services. Patient is not likely to be compliant. -Nausea, abdominal pain with emesis 2. resolved. 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 Lipase was not elevated. -Escherichia coli UTI. cont Cipro. patient advised she can receive this for free from [facility]. -Transaminitis due to alcohol use. Trended down. -Hypokalemia and hypomagnesemia. electrolytes normal today. We'll give prescription for magnesium potassium 2 more weeks. -Mild hyperammonemia, resolved. -Cocaine abuse. Avoidance of cocaine counseled the patient. -Tobacco use, cessation advised. DC home today, I recommend 1 more day in the hospital however patient is refusing. She is somewhat unsteady on her feet. PT recommending walker and thus we will provide her 1. Librium prescription for 3 days provided this is mainly for anxiety as alcohol withdrawal symptoms appear resolved. Patient recommended to follow-up at [facility] for psychiatric services. Discussed with case management and physical therapy. Pt Condition on Discharge: Good Discharge Disposition: Discharge Home Discharge Time: > 30 minutes Discharge Instructions DIET: Follow Instructions for: As Tolerated, No Restrictions Activities you can perform: Regular-No Restrictions Follow up Referrals: Psychiatry Adult @ [facility] New Medications: Walker with Front Wheels (Walker with Front Wheels) 1 Mis Mis EA .ROUTE DIRECTED, #1 0 Refills Chlordiazepoxide HCl (Chlordiazepoxide HCl) 10 Mg Capsule 10 MG PO TID for Anxiety, #9 CAP Ciprofloxacin (Cipro) 500 Mg Tab 500 MG PO Q12HR for Infection, #7 TAB Magnesium Oxide (Magnesium Oxide) 400 Mg Tab 400 MG PO BID for Electrolyte Replacement, #30 TAB Potassium Chloride Microencaps (Potassium Chloride Microencaps) 20 Meq Tab 20 MEQ PO Q12HR for Electrolyte Replacement, #28 TAB Laura Whiting MD May 04, 2017 10:13
[2017-05-04] MEDS ORDERED: POTA20TA5 PO (10:23)
[2017-05-04] MEDS ORDERED: CHLO10CA5 PO (10:23)
[2017-05-04] MEDS ORDERED: MAGN400T3 PO (10:23)
[2017-05-04] MEDS ORDERED: WALKER WHEELS/F1 MIS (10:28)
[2017-05-04] MEDS ORDERED: CIPR-9 PO (10:33)
== END 2017-05-04 10:50 | disposition home or self-care (01) | DRG 896 ==
LOC: PHED 09:52 → PHEDA 12:28 → OBSVTOIN 12:29 → PH3A 14:18
PROVIDERS: ADMIT Family Medicine; ATTEND Family Medicine
DX: F10.229 Alcohol dependence with intoxication, unspecified (principal); G93.40 Encephalopathy, unspecified; F14.929 Cocaine use, unspecified with intoxication, unspecified; E72.20 Disorder of urea cycle metabolism, unspecified; N39.0 Urinary tract infection, site not specified; F10.239 Alcohol dependence with withdrawal, unspecified; B19.20 Unspecified viral hepatitis C without hepatic coma; I10 Essential (primary) hypertension; K21.9 Gastro-esophageal reflux disease without esophagitis; E87.6 Hypokalemia; E83.42 Hypomagnesemia; B96.20 Unspecified Escherichia coli [E. coli] as the cause of diseases classified elsewhere; F32.9 Major depressive disorder, single episode, unspecified; F41.9 Anxiety disorder, unspecified; F17.200 Nicotine dependence, unspecified, uncomplicated; R00.0 Tachycardia, unspecified; Y90.8 Blood alcohol level of 240 mg/100 ml or more; Z88.0 Allergy status to penicillin; Z88.6 Allergy status to analgesic agent; Z91.030 Bee allergy status
CPT/HCPCS: 70450; 71010; 80048; 80053; 80307; 81001; 82140; 82550; 83690; 83735; 84132; 84484; 85025; 85610; 85730; 87077; 87086; 87186; 93005; G8987-GP; G8988-GP; J2060; J3411; J3475; J3480; J7030; J7042

== ENCOUNTER 2017-08-02 10:57 | Emergency (ER) | payer SELFPAY ==
[~2017-08-02] VITALS: Ht 175.3 cm; Wt 59.0 kg
[~2017-08-02 10:57] MED LIST changes: -BACT800T5 PO; -CHLO5CAP3 PO; +CIPR-9 PO; +MAGN400T3 PO; +POTA20TA5 PO; +WALKER WHEELS/F1 MIS; -ZOFR4TAB3 SL
[2017-08-02 11:00] VITALS: BP 123/86; PULSE 102; RESP 20; TEMP 98.2; O2SAT 97
[2017-08-02 12:42] LABS: AUTOMATED NEUTROPHIL # 3.7 TH/MM3 (1.8-7.7); BASOPHIL % 0.3 % (0.0-2.0); EOSINOPHIL % 0.2 % (0.0-4.0); HEMATOCRIT 35.4 % (35.0-46.0); HEMOGLOBIN 12.8 GM/DL (11.6-15.3); LYMPH % 16.6 % (9.0-44.0); LYMPHOCYTE # 1.1 TH/MM3 (1.0-4.8); MEAN CELL VOLUME 101.7 FL (80.0-100.0); MEAN CORPUSCULAR HEMOGLOBIN 36.6 PG (27.0-34.0); MEAN PLATELET VOLUME 8.9 FL (7.0-11.0); MONO % 24.6 % (0.0-8.0); MONOCYTE # 1.6 TH/MM3 (0-0.9); NEUT % 58.3 % (16.0-70.0); PLATELET COUNT 104 TH/MM3 (150-450); RED BLOOD COUNT 3.49 MIL/MM3 (4.00-5.30); RED CELL DISTRIBUTION WIDTH 14.3 % (11.6-17.2); WHITE BLOOD COUNT 6.4 TH/MM3 (4.0-11.0)
[2017-08-02 12:51] LABS: AMORPHOUS SEDIMENT, URINE OCC; BACTERIA, URINE RARE /hpf; BILIRUBIN, URINE NEG (NEG); BLOOD, URINE SMALL (NEG); GLUCOSE,URINE NEG (NEG); HYALINE CAST, URINE 4 /lpf (RARE); KETONE, URINE NEG (NEG); MUCUS URINE FEW /lpf (OCC); NITRITE,URINE NEG (NEG); PH, URINE 5.5 (5.0-8.5); SQUAMOUS EPITHELIAL CELL URINE 3 /hpf (0-5); URINE COLOR YELLOW (YELLW/STRAW); URINE LEUKOCYTE ESTERASE TRACE (NEG)
[2017-08-02 13:12] LABS: ALBUMIN 3.7 GM/DL (3.4-5.0); ALKALINE PHOSPHATASE 109 U/L (45-117); ALT (GPT) 68 U/L (10-53); AST (GOT) 135 U/L (15-37); BICARBONATE 35.8 MEQ/L (21.0-32.0); BLOOD UREA NITROGEN 11 MG/DL (7-18); CALCIUM 9.3 MG/DL (8.5-10.1); CHLORIDE 85 MEQ/L (98-107); CREATININE 0.66 MG/DL (0.50-1.00); GLOMERULAR FILTRATION RATE 99 ML/MIN (>89); GLUCOSE,RANDOM 114 MG/DL (74-106); SODIUM (NA) 129 MEQ/L (136-145); TOTAL BILIRUBIN ADULT 1.6 MG/DL (0.2-1.0)
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
[2017-08-02] MEDS ORDERED: SODIUM CHLOR 0.9% 1000 ML INJ 1,000 ML IV ONE (14:00)
[2017-08-02] MEDS ORDERED: POTASSIUM CHLORIDE 20 MEQ CONTROLLED RELEASE TAB PO ONE (14:00)
== END 2017-08-02 14:51 | disposition home or self-care (01) ==
LOC: NEPD 10:57
DX: F19.10 Other psychoactive substance abuse, uncomplicated (principal); F17.200 Nicotine dependence, unspecified, uncomplicated; B19.20 Unspecified viral hepatitis C without hepatic coma; Z79.899 Other long term (current) drug therapy
CPT/HCPCS: 80053; 80307; 81001; 84443; 84703; 85025; 99283; J7030

== ENCOUNTER 2017-11-08 10:58 | Emergency (ER) | payer SELFPAY ==
[~2017-11-08] VITALS: Ht 175.3 cm; Wt 60.0 kg
[2017-11-08 11:05] VITALS: BP 119/83; PULSE 137; RESP 19; TEMP 98.7; O2SAT 97
--- NOTE | 2017-11-08 11:06 | PD ---
HPI Chief Complaint: Altered mental status Time Seen by Provider: 11:03 Travel History International Travel<30 days: No Contact w/Intl Traveler<30days: No Traveled to known affect area: No History of Present Illness HPI EMS was called for unresponsive, patient was found with a pulse, tachycardic but very dyspneic with pinpoint pupils. Was given Narcan IV and had a return of awareness and was able to describe to the medics that she had been drinking alcohol, use Dilaudid, cocaine and heroin all this morning. Patient states that she is a self admitted drug abuser and thus multiple different substances. She is not currently interested in any type of detox program. Patient denies any suicidal or homicidal ideation Allergy to penicillin poultry aspirin Past medical history significant for hypertension headacheS, GERD, liver disease , depression, anxiety, claustrophobia, patient states that he has hepatitis C. PFSH Past Medical History Hx Anticoagulant Therapy: No Asthma: Yes Anxiety: Yes Depression: Yes Cancer: No Chemotherapy: No Cerebrovascular Accident: No Diabetes: No Diminished Hearing: No Endocrine: No Gastrointestinal Disorders: Yes GERD: Yes Genitourinary: No Headaches: Yes Hepatitis: Yes (hep C) Hypertension: Yes Immune Disorder: No Implanted Vascular Access Dvce: No Musculoskeletal: Yes Neurologic: Yes Psychiatric: Yes Reproductive: No Immunizations Current: Yes : 1 Miscarriage: 1 Dilation and Curettage (D&C): Yes Past Surgical History Hysterectomy: No Other Surgery: No Social History Alcohol Use: Yes (1 BOTTLE OF WHISKEY DAILY) Tobacco Use: Yes (/4 ppd) Substance Use: Yes (LORTAB, AND COCAINE morphine) Allergies-Medications (Allergen,Severity, Reaction): Coded Allergies: Poultry (Unverified Allergy, Severe, SWELLING, 11/08/17) aspirin (Unverified Allergy, Severe, UNKNOWN, 11/08/17) bee venom protein (honey bee) (Unverified Allergy, Severe, 11/08/17) penicillin G (Unverified Allergy, Intermediate, 11/08/17) Reported Meds & Prescriptions Reported Meds & Active Scripts Active Cipro (Ciprofloxacin HCl) 500 Mg Tab 500 Mg PO Q12HR Walker with Front Wheels (Device) 1 Mis Mis Ea .ROUTE DIRECTED Potassium Chloride Microencaps 20 Meq Tab 20 Meq PO Q12HR Magnesium Oxide 400 Mg Tab 400 Mg PO BID Chlordiazepoxide HCl 10 Mg Capsule 10 Mg PO TID Review of Systems ROS Limitations: Intoxication General / Constitutional: No: Fever Eyes: No: Visual changes HENT: No: Headaches Cardiovascular: No: Chest Pain or Discomfort Respiratory: No: Shortness of Breath Gastrointestinal: No: Abdominal Pain Genitourinary: No: Dysuria Musculoskeletal: No: Pain Skin: No Rash Neurologic: No: Weakness Psychiatric: No: Depression Endocrine: No: Polydipsia Hematologic/Lymphatic: No: Easy Bruising Physical Exam Narrative GENERAL: SKIN: Warm and dry. Patient is noted to have multiple track solis none of which I infected HEAD: Atraumatic. Normocephalic. EYES: Pupils equal and round. No scleral icterus. No injection or drainage. ENT: No nasal bleeding or discharge. Mucous membranes pink and moist. NECK: Trachea midline. No JVD. CARDIOVASCULAR: Regular rate and rhythm. No cardiac murmur RESPIRATORY: No accessory muscle use. Clear to auscultation. Breath sounds equal bilaterally. GASTROINTESTINAL: Abdomen soft, non-tender, nondistended. MUSCULOSKELETAL: Extremities without clubbing, cyanosis, or edema. No obvious deformities. NEUROLOGICAL: Awake and alert. No obvious cranial nerve deficits. Motor grossly within normal limits. Five out of 5 muscle strength in the arms and legs. Normal speech. PSYCHIATRIC: Appropriate mood and affect; insight and judgment normal. Data Data Last Documented VS Vital Signs Date Time Temp Pulse Resp B/P (MAP) Pulse Ox O2 Delivery O2 Flow Rate FiO2 11/08/17 14:33 88 21 122/89 (100) 99 11/08/17 11:19 Room Air 11/08/17 11:05 98.7 Orders Orders Electrocardiogram (11/08/17 11:06) B-Type Natriuretic Peptide (11/08/17 11:06) Ckmb (Isoenzyme) Profile (11/08/17 11:06) Complete Blood Count With Diff (11/08/17 11:06) Comprehensive Metabolic Panel (11/08/17 11:06) Prothrombin Time / Inr (Pt) (11/08/17 11:06) Act Partial Throm Time (Ptt) (11/08/17 11:06) Troponin I (11/08/17 11:06) Lipase (11/08/17 11:06) Chest, Single Ap (11/08/17 11:06) Ecg Monitoring (11/08/17 11:06) Bilateral Bp Monitoring (11/08/17 11:06) Iv Access Insert/Monitor (11/08/17 11:06) Oximetry (11/08/17 11:06) Oxygen Administration (11/08/17 11:06) Sodium Chloride 0.9% Flush (Ns Flush) (11/08/17 11:15) Sodium Chlorid 0.9% 500 Ml Inj (Ns 500 M (11/08/17 11:15) Ed Discharge Order (11/08/17 13:49) Labs Laboratory Tests Test 11/08/17 11:09 White Blood Count 5.2 TH/MM3 Red Blood Count 3.56 MIL/MM3 Hemoglobin 13.3 GM/DL Hematocrit 38.3 % Mean Corpuscular Volume 107.6 FL Mean Corpuscular Hemoglobin 37.4 PG Mean Corpuscular Hemoglobin Concent 34.7 % Red Cell Distribution Width 13.8 % Platelet Count 216 TH/MM3 Mean Platelet Volume 7.5 FL Neutrophils (%) (Auto) 30.4 % Lymphocytes (%) (Auto) 54.0 % Monocytes (%) (Auto) 14.1 % Eosinophils (%) (Auto) 0.8 % Basophils (%) (Auto) 0.7 % Neutrophils # (Auto) 1.6 TH/MM3 Lymphocytes # (Auto) 2.8 TH/MM3 Monocytes # (Auto) 0.7 TH/MM3 Eosinophils # (Auto) 0.0 TH/MM3 Basophils # (Auto) 0.0 TH/MM3 CBC Comment DIFF FINAL Differential Comment Prothrombin Time 11.0 SEC Prothromb Time International Ratio 1.1 RATIO Activated Partial Thromboplast Time 22.6 SEC Blood Urea Nitrogen 9 MG/DL Creatinine 0.73 MG/DL Random Glucose 137 MG/DL Total Protein 7.8 GM/DL Albumin 3.4 GM/DL Calcium Level 7.9 MG/DL Alkaline Phosphatase 74 U/L Aspartate Amino Transf (AST/SGOT) 180 U/L Alanine Aminotransferase (ALT/SGPT) 58 U/L Total Bilirubin 0.4 MG/DL Sodium Level 145 MEQ/L Potassium Level 3.4 MEQ/L Chloride Level 109 MEQ/L Carbon Dioxide Level 26.1 MEQ/L Anion Gap 10 MEQ/L Estimat Glomerular Filtration Rate 88 ML/MIN Total Creatine Kinase 55 U/L Troponin I LESS THAN 0.02 NG/ML B-Type Natriuretic Peptide 59 PG/ML Lipase 114 U/L MDM Medical Decision Making Medical Screen Exam Complete: Yes Emergency Medical Condition: Yes Medical Record Reviewed: Yes Interpretation(s) Normal sinus rhythm, 79 bpm, normal intervals, LVH, but no evidence of any ST elevation NE pattern noted Differential Diagnosis Electrolyte abnormality versus overdose versus substance abuse versus otitis Narrative Course After 2 hours of observation the patient is walking around, went to the bathroom on her own power, did not require any assistance. Patient tolerated p.o. as well. CBC shows no leukocytosis, no anemia, normal platelet count Coagulation profile is within normal limits Elect lites are all within normal limits, normal kidney and pancreatic functions. First set of cardiac enzymes negative Beta natruretic peptide normal at 59 Calcium is slightly lower at 7.9, Patient's liver functions are mildly elevated but not significantly to be causing any type of disease, AST 180, ALT 58, with a normal protein alk phos and bilirubin. Diagnosis Primary Impression: overdose s/p narcan use Patient Instructions: General Instructions Disposition: 01 DISCHARGE HOME Condition: Stable Sonu Yanez MD November 08, 2017 11:06
[2017-11-08] MEDS ORDERED: SODIUM CHLORIDE 0.9% FLUSH 10 ML FLUSH IVF PRN (11:15)
[2017-11-08] MEDS ORDERED: SODIUM CHLORID 0.9% 500 ML INJ 500 ML IV ONE (11:15)
[2017-11-08 11:19] VITALS: BP 155/83; PULSE 117; RESP 17; O2SAT 97
[2017-11-08 11:28] LABS: AUTOMATED NEUTROPHIL # 1.6 TH/MM3 (1.8-7.7); BASOPHIL % 0.7 % (0.0-2.0); EOSINOPHIL % 0.8 % (0.0-4.0); HEMATOCRIT 38.3 % (35.0-46.0); HEMOGLOBIN 13.3 GM/DL (11.6-15.3); LYMPHOCYTE # 2.8 TH/MM3 (1.0-4.8); MEAN CELL VOLUME 107.6 FL (80.0-100.0); MEAN CORPUSCULAR HEMOGLOBIN 37.4 PG (27.0-34.0); MEAN CORPUSCULAR HGB CONC 34.7 % (32.0-36.0); MEAN PLATELET VOLUME 7.5 FL (7.0-11.0); MONO % 14.1 % (0.0-8.0); MONOCYTE # 0.7 TH/MM3 (0-0.9); NEUT % 30.4 % (16.0-70.0); PLATELET COUNT 216 TH/MM3 (150-450); RED BLOOD COUNT 3.56 MIL/MM3 (4.00-5.30); RED CELL DISTRIBUTION WIDTH 13.8 % (11.6-17.2); WHITE BLOOD COUNT 5.2 TH/MM3 (4.0-11.0)
[2017-11-08 11:33] LABS: INTERNATIONAL NORMALIZED RATIO 1.1 RATIO
[2017-11-08 11:44] LABS: ALBUMIN 3.4 GM/DL (3.4-5.0); ALT (GPT) 58 U/L (10-53); AST (GOT) 180 U/L (15-37); BICARBONATE 26.1 MEQ/L (21.0-32.0); BLOOD UREA NITROGEN 9 MG/DL (7-18); CALCIUM 7.9 MG/DL (8.5-10.1); CHLORIDE 109 MEQ/L (98-107); CREATININE 0.73 MG/DL (0.50-1.00); GLOMERULAR FILTRATION RATE 88 ML/MIN (>89); GLUCOSE,RANDOM 137 MG/DL (74-106); SODIUM (NA) 145 MEQ/L (136-145)
--- NOTE | 2017-11-08 11:46 | RADRPT ---
EXAM DATE/TIME: 11/08/2017 11:26 [facility] COMPARISON: CHEST SINGLE AP, May 01, 2017, 12:58. INDICATIONS : Chest pain. MEDICAL HISTORY : Hypertension. Gastroesophageal reflux disease. Hepatitis C. SURGICAL HISTORY : None. ENCOUNTER: Initial ACUITY: 1 day PAIN SCORE: 2/10 LOCATION: Bilateral chest FINDINGS: A single view of the chest demonstrates the lungs to be symmetrically aerated without evidence of mas s, infiltrate or effusion. The cardiomediastinal contours are unremarkable. Osseous structures are intact. CONCLUSION: 1. No acute cardiopulmonary disease. Reji Oneill MD on November 08, 2017 at 11:43 Board Certified Radiologist. This report was verified electronically.
[2017-11-08 11:49] LABS: ALKALINE PHOSPHATASE 74 U/L (45-117); TOTAL BILIRUBIN ADULT 0.4 MG/DL (0.2-1.0); TOTAL PROTEIN 7.8 GM/DL (6.4-8.2); TROPONIN I LESS THAN 0.02 NG/ML (0.02-0.05)
[2017-11-08 12:30] VITALS: BP 129/86; PULSE 97; RESP 21; O2SAT 97
[2017-11-08 14:33] VITALS: BP 122/89
--- NOTE | 2017-11-09 20:21 | EKG ---
Date Performed: 11/08/2017 Time Performed: 12:38:02 PTAGE: 42 years EKG: Sinus rhythm POSSIBLE LEFT ATRIAL ENLARGEMENT POSSIBLE LEFT VENTRICULAR HYPERTROPHY When compared to previous tra cing, ST-T abnormality has Resolved. ABNORMAL ECG PREVIOUS TRACING : 05/01/2017 12.32.19 DOCTOR: Avni Cook Interpretating Date/Time 11/09/2017 20:21:25
== END 2017-11-08 14:41 | disposition home or self-care (01) ==
LOC: NEPC 10:58
DX: T50.901A Poisoning by unspecified drugs, medicaments and biological substances, accidental (unintentional), initial encounter (principal); B19.20 Unspecified viral hepatitis C without hepatic coma; F17.200 Nicotine dependence, unspecified, uncomplicated; R94.31 Abnormal electrocardiogram [ECG] [EKG]
CPT/HCPCS: 71045; 80053; 82550; 83690; 83880; 84484; 85025; 85610; 85730; 93005; 96360; 99285; J7040